=== PATIENT | female | born 1985 | race Hispanic/Latino ===

== ENCOUNTER 2022-01-15 09:26 | Emergency (ER) | payer SELFPAY ==
[2022-01-15 09:41] VITALS: BP 95/60; PULSE 56; RESP 20; TEMP 36.5; O2SAT 99
--- NOTE | 2022-01-15 09:55 | ED.FEMALEGU ---
HPI - Female Genitourinary General Chief complaint: Urogenital-Female Stated complaint: burning and frequent urination Time Seen by Provider: 01/15/22 09:50 Source: patient and RN notes reviewed Mode of arrival: ambulatory Limitations: no limitations History of Present Illness HPI Narrative: 36-year-old female presented for complaint of burning with urination for 1 week. She endorses frequency, urgency, and mild nausea and dizziness. Denies abdominal pain, flank pain, hematuria, fever or chills. She has not taken anything for symptoms. She denies recurrent UTIs. Related Data Home Medications Medication Instructions Recorded Confirmed dicyclomine 10 mg capsule mg 01/15/22 levothyroxine 50 mcg tablet mcg 01/15/22 linaclotide 145 mcg capsule mcg 01/15/22 (Linzess) omeprazole 20 mg capsule,delayed mg 01/15/22 release Allergies Allergy/AdvReac Type Severity Reaction Status Date / Time No Known Allergies Allergy Verified 01/15/22 09:54 Review of Systems Review of Systems: CONSTITUTIONAL: Denies body aches, fever, chills, or sweats. CARDIOVASCULAR: Denies chest pain, palpitations, or edema. RESPIRATORY: Denies cough or dyspnea. GASTROINTESTINAL: Denies abdominal pain, nausea, vomiting, or diarrhea. GENITOURINARY: Reports dysuria, frequency, urgency, denies hematuria, flank pain SKIN: Denies rash, itching, or wounds. MUSCULOSKELETAL: Denies back pain or myalgia. PMFSH Comments At time of signature, I have reviewed and agree with nursing past medical, surgical, social and family history unless otherwise noted. Please see nursing chart for further information. There is no relevant family history pertinent to the presenting complaint Exam Narrative: GENERAL: Well-appearing and in no acute distress. ENT: Mucous membranes pink and moist. CHEST: Clear to auscultation. HEART: Regular rate and rhythm. ABDOMEN: Soft, nontender, nondistended, normal active bowel sounds. No CVA tenderness SKIN: Warm, dry, no rash. NEURO: No focal deficits. Alert and oriented x3. Gait steady. PSYCH: Normal affect. Course Course Emergency Course: Patient is aware of diagnosis, understands and agrees to treatment plan. Anticipatory guidance given. Patient agrees to follow-up as directed and is aware of reasons to seek care at the emergency department. Portions of this record may have been created with voice recognition software Level of Care: Express Care Visit Vital Signs Vital signs: Vital Signs Temperature 97.7 F 01/15/22 09:41 Pulse Rate 56 L 01/15/22 09:41 Respiratory Rate 20 01/15/22 09:41 Blood Pressure 95/60 L 01/15/22 09:41 Pulse Oximetry 99 01/15/22 09:41 Oxygen Delivery Room Air 01/15/22 09:41 Temperature 97.7 F 01/15/22 09:41 Pulse Rate 56 L 01/15/22 09:41 Respiratory Rate 20 01/15/22 09:41 Blood Pressure 95/60 L 01/15/22 09:41 Pulse Oximetry 99 01/15/22 09:41 Oxygen Delivery Room Air 01/15/22 09:41 Reviewed MDM - Female Genitourinary MDM Narrative Medical decision making narrative: UA reviewed with pt. Rx sent. patient is non-toxic appearing and is in no distress. Appropriate for treatment of UTI as outpt. Differential Diagnosis Differential diagnosis: Likely urinary tract infection and cystitis Lab Data Labs: Urine Glucose Negative Reference Range: Negative Urine Bilirubin Negative Reference Range: Negative Urine Ketone Negative Reference Range: Negative Urine Specific [place] 1.025 Reference Range:1.001-1.035 Urine Blood 2+ Reference Range: Negative * * Urine pH
== END 2022-01-15 10:10 | disposition home or self-care (01) ==
PROVIDERS: Emergency Provider Nurse Practitioner Family; PCP Registered Nurse
DX: N39.0 Urinary tract infection, site not specified (principal); K21.9 Gastro-esophageal reflux disease without esophagitis; E03.9 Hypothyroidism, unspecified
CPT/HCPCS: 81003; 87077; 87086; 87186; 99203; G0463

== ENCOUNTER 2023-06-10 12:14 | Emergency (ER) | payer SELFPAY ==
[2023-06-10 12:21] VITALS: BP 120/71; PULSE 73; RESP 18; TEMP 36.9; O2SAT 98
--- NOTE | 2023-06-10 12:41 | ED.GENADULT ---
HPI - General Adult General Chief complaint: Upper Respiratory Infection Stated complaint: cough/headache Source: patient, RN notes reviewed and old records reviewed Mode of arrival: ambulatory Limitations: no limitations History of Present Illness HPI narrative: 38-year-old female presents to [facility] with complaints cough, congestion, sore throat, myalgia, fatigue this started 1 week ago. Patient taking [id number] medications with no relief. Patient denies dizziness, weakness, chest pain, shortness of breath. Related Data Home Medications Medication Instructions Recorded Confirmed levothyroxine 50 mcg tablet mcg 01/15/22 linaclotide 145 mcg capsule mcg 01/15/22 (Linzess) omeprazole 20 mg capsule,delayed mg 01/15/22 release aluminum chloride 20 % topical topical 06/10/23 solution (Drysol Dab-O-Matic) ibuprofen 400 mg tablet mg 06/10/23 Allergies Allergy/AdvReac Type Severity Reaction Status Date / Time No Known Allergies Allergy Verified 06/10/23 12:20 Review of Systems Constitutional: Constitutional: Reports no additional constitutional complaints, Reports body ache(s), Denies chills, Reports fatigue, Denies fever(s) and Denies headache(s) Eyes: Eyes: Reports no additional eye complaints and Denies blurry vision ENT: Reports system reviewed and no additional complaints, except as documented, Denies vertigo, Denies dizziness, Denies ear discharge, Denies otalgia, Denies facial pain, Denies headache(s), Reports nasal congestion, Denies nasal discharge, Reports sinus pain, Reports sinus pressure and Reports sore throat Cardiovascular: Cardiovascular: Reports no additional cardiovascular complaints, Denies chest pain, Denies chest pain at rest, Denies rapid heart rate and Denies dyspnea Respiratory: Respiratory: Reports no additional respiratory complaints, Denies chest congestion, Reports cough, Denies pain on inspiration, Denies pain with cough and Denies dyspnea Gastrointestinal: Gastrointestinal: Denies abdominal pain, Denies diarrhea, Denies nausea and Denies vomiting Integumentary/Breasts: Skin/Breast: Denies rash Neurologic: Reports system reviewed and no additional complaints, except as documented, Denies vertigo, Denies dizziness and Denies headache(s) Endocrine: Endocrine: Denies fatigue PMFSH Comments At the time of my signature, I reviewed and agree with the nursing past medical, surgical, social, and family history. There is no relevant family history pertinent to the patient complaint. Exam Const: General: cooperative, healthy appearing, no acute distress and well nourished Nutritional Appearance: well nourished Orientation/consciousness: patient oriented x3 Limitations: no limitations HENMT: Head: normal to inspection and normocephalic Ears: external ears normal, TM's normal bilaterally, mastoids normal and Abnormal EAC present Face/Nose/Sinus: normal facial exam Face and sinus: normal facial exam Mouth: Yes Normal oral and palatal mucosa present, Yes oropharynx normal and Yes moist mucous membranes Throat: tonsils normal, uvula midline, posterior oropharynx abnormal erythema and no uvular edema Eyes: General: appearance normal, both eyes and all related structures Sclera: sclerae normal Pupils: Equal, round and reactive pupils present Resp: Effort & Inspection: normal respiratory effort, able to speak in complete sentences, no audible wheezes, no cough, no respiratory distress and no retractions Auscultation: clear to auscultation bilaterally, no crackles, no rales, no rhonchi and no wheezes Cardio: Rate: regular rate Rhythm: regular rhythm Skin: General skin exam: normal color and no rashes or lesions noted Neuro: General: patient oriented x3 Cranial nerves: Yes Equal, round and reactive pupils present Psych: Appearance: grossly normal Mental Status: mental status grossly normal Speech and movement: Normal speech and movement present Affect: normal affect
== END 2023-06-10 13:03 | disposition home or self-care (01) ==
PROVIDERS: Emergency Provider Registered Nurse
DX: J06.9 Acute upper respiratory infection, unspecified (principal); Z79.1 Long term (current) use of non-steroidal anti-inflammatories (NSAID); Z20.822 Contact with and (suspected) exposure to COVID-19
CPT/HCPCS: 87081; 87426; 87804; 87880; 99213; G0463

== ENCOUNTER 2023-11-10 11:04 | Emergency (ER) | payer SELFPAY ==
[2023-11-10 11:16] VITALS: BP 99/67; PULSE 62; RESP 18; TEMP 36.7; O2SAT 100
--- NOTE | 2023-11-10 11:23 | ED.GENADULT ---
HPI - General Adult General Chief complaint: Urogenital-Female Stated complaint: Poss UTI Time Seen by Provider: 11/10/23 11:21 Source: patient, RN notes reviewed and old records reviewed Mode of arrival: ambulatory Limitations: no limitations History of Present Illness HPI narrative: 38-year-old female to Express Care for complaint of nausea, urinary frequency, urinary urgency and burning with urination for 1 week. Patient endorses mild lower abdominal discomfort with urination. Patient reports having a UTI approximately 1 year ago. Patient denies fever, vomiting, bowel changes. Patient in no acute distress in exam room. Related Data Home Medications Medication Instructions Recorded Confirmed levothyroxine 50 mcg tablet 50 mcg PO DAILY 01/15/22 11/10/23 linaclotide 145 mcg capsule 145 mcg PO DAILY 01/15/22 11/10/23 (Linzess) ibuprofen 400 mg tablet See Rx Instructions .Route .COMPLEX 06/10/23 11/10/23 Allergies Allergy/AdvReac Type Severity Reaction Status Date / Time No Known Allergies Allergy Verified 11/10/23 11:28 Review of Systems Review of Systems: All systems reviewed & are unremarkable except as noted in HPI and below Constitutional: Constitutional: Reports as per HPI, Denies body ache(s), Denies chills and Denies fever(s) Eyes: Eyes: Reports no additional eye complaints ENT: Reports system reviewed and no additional complaints, except as documented Cardiovascular: Cardiovascular: Reports no additional cardiovascular complaints, Denies chest pain and Denies dyspnea Respiratory: Respiratory: Reports no additional respiratory complaints, Denies cough and Denies dyspnea Genitourinary: Genitourinary: Reports as per HPI, Reports urinary frequency, Reports nocturia, Reports dysuria and Reports urinary urgency Musculoskeletal: Musculoskeletal: Reports no additional musculoskeletal complaints Neurologic: Reports system reviewed and no additional complaints, except as documented Psychiatric: Psychiatric: Reports no additional psychiatric complaints PMFSH Comments At the time of my signature, I reviewed and agree with the nursing past medical, surgical, social, and family history. There is no relevant family history pertinent to the patient complaint. Exam Const: General: cooperative, healthy appearing, comfortable, no acute distress, alert and well nourished Nutritional Appearance: well nourished Orientation/consciousness: patient oriented x3 Limitations: no limitations HENMT: Head: normal to inspection Ears: external ears normal Face/Nose/Sinus: Normal external nose present, Normal nares present, normal facial exam, No erythema and No edema Face and sinus: normal facial exam, no erythema and no edema Mouth: Yes Normal oral and palatal mucosa present Eyes: General: appearance normal, both eyes and all related structures Neck: Neck: normal visual inspection, full ROM and no meningeal signs Lymphatic: no lymphadenopathy noted and no lymphedema noted Chest: Chest palpation & inspection: normal inspection of the chest Resp: Effort & Inspection: normal respiratory effort and able to speak in complete sentences Auscultation: clear to auscultation bilaterally Cardio: Jugular venous distension: no JVD Rate: regular rate Rhythm: regular rhythm : General: Yes no CVA tenderness Back/Spine/Pelvis: Cervical Spine: cervical ROM normal Skin: General skin exam: normal color, no rashes or lesions noted and turgor normal Neuro: General: patient oriented x3, gait normal, moves all extremities and no meningeal signs Speech: normal speech Gait exam (Neuro): Normal gait present Extrem: General: normal to inspection, full ROM and capillary refill normal Psych: Appearance: grossly normal and well kempt Course Course Emergency Course: Some parts of this dictation were generated by voice recognition software and may contain typographical and/or grammatical inaccuracies. Level of Care: Carson Plunkett
== END 2023-11-10 11:50 | disposition home or self-care (01) ==
PROVIDERS: Emergency Provider Nurse Practitioner Family
DX: N39.0 Urinary tract infection, site not specified (principal); K21.9 Gastro-esophageal reflux disease without esophagitis; E03.9 Hypothyroidism, unspecified
CPT/HCPCS: 81003; 87086; 87088; 99213; G0463

== ENCOUNTER 2024-01-19 09:08 | Emergency (ER) | payer SELFPAY ==
--- NOTE | 2024-01-19 09:16 | ED.SKABFB ---
HPI - Skin/Abscess/Foreign Bdy General Chief complaint: Skin/Abscess/Foreign Body Stated complaint: RASH ON ARMS & LEGS Source: patient and RN notes reviewed Mode of arrival: ambulatory Limitations: no limitations History of Present Illness HPI narrative: Patient is a 39-year-old female who presents to the [facility] with complaints of rash. Patient has a localized rash to bilateral arms and legs. She states that she noticed the rash on Thursday and has continued to get worse. The rash initially started on bilateral hands and spread up her arms and is now on her bilateral lower extremities. She states that she has tried hydrocortisone cream, Claritin, Chantell without any improvement. States that the rash will itch at times. She denies recent illness or fever. Denies any known skin exposure. Denies new lotions, soaps, detergents. Related Data Home Medications Medication Instructions Recorded Confirmed levothyroxine 50 mcg tablet 50 mcg PO DAILY 01/15/22 01/19/24 linaclotide 145 mcg capsule 145 mcg PO DAILY 01/15/22 01/19/24 (Linzess) simethicone 125 mg chewable tablet 125 mg PO DIRECTED 01/19/24 01/19/24 (Gas Relief Extra Strength) Allergies Allergy/AdvReac Type Severity Reaction Status Date / Time No Known Allergies Allergy Verified 01/19/24 09:22 Review of Systems Review of Systems: CONSTITUTIONAL: Denies fever, chills, or sweats. EYES: Denies visual changes, redness, or discharge. ENT: Denies otalgia and sore throat CARDIOVASCULAR: Denies chest pain, palpitations, or edema. RESPIRATORY: Denies cough or dyspnea. GASTROINTESTINAL: Denies abdominal pain, nausea, vomiting, or diarrhea. GENITOURINARY: Denies dysuria or hematuria. SKIN: Reports rash and itching. MUSCULOSKELETAL: Denies back pain, joint pain, or myalgia. NEUROLOGIC: Denies headache, numbness, or weakness. Pertinent positives per HPI. PMFSH Comments At the time of my signature, I reviewed and agree with the nursing past medical, surgical, social, and family history. There is no relevant family history pertinent to the patient complaint. Exam Narrative: GENERAL: This is a well-nourished, well-developed patient, in no apparent distress. HEAD: normocephalic, atraumatic. EYES: Sclera clear/white. Vision is grossly intact. EARS: External ears normal. Hearing grossly intact. NOSE: External nose normal with no obvious nasal discharge, nares without redness, no rhinorrhea. THROAT: Mucous membranes moist, posterior pharynx clear. NECK: Neck supple, non-tender without lymphadenopathy, masses or thyromegaly. CARDIOVASCULAR: Regular rate and rhythm without murmurs, gallops, or rubs. RESPIRATORY: Clear to auscultation. Breath sounds equal bilaterally. No wheezes, rales, or rhonchi. GASTROINTESTINAL: Abdomen soft, non-tender, nondistended. Bowel sounds are active. No hepato-splenomegaly, or palpable masses. No guarding. SKIN: warm, intact. good texture and turgor. Rash noted to bilateral upper and lower extremities. Reddened spots noted to bilateral arms and legs. Reddened areas with white centers to bilateral hands. NEURO: awake, alert, and oriented to person, place and time. There were no obvious focal neurologic abnormalities. EXTREMITIES: No clubbing, cyanosis, or edema. No joint tenderness, effusion, or edema noted. Course Course Level of Care: Express Care Visit Vital Signs Vital signs: Vital Signs Temperature 97.2 F L 01/19/24 09:20 Pulse Rate 59 L 01/19/24 09:20 Respiratory Rate 16 01/19/24 09:20 Blood Pressure 114/68 01/19/24 09:20 Pulse Oximetry 99 01/19/24 09:20 Temperature 97.2 F L 01/19/24 09:20 Pulse Rate 59 L 01/19/24 09:20 Respiratory Rate 16 01/19/24 09:20 Blood Pressure 114/68 01/19/24 09:20 Pulse Oximetry 99 01/19/24 09:20 Reviewed MDM - Skin/Abscess/Foreign Bdy MDM Narrative Medical decision making narrative: Wash the area with soap and cool water only. Avoid scratching w
[2024-01-19 09:20] VITALS: BP 114/68; PULSE 59; RESP 16; TEMP 36.2; O2SAT 99
== END 2024-01-19 09:47 | disposition home or self-care (01) ==
PROVIDERS: Emergency Provider Nurse Practitioner; PCP Registered Nurse
DX: R21 Rash and other nonspecific skin eruption (principal); K21.9 Gastro-esophageal reflux disease without esophagitis; E03.9 Hypothyroidism, unspecified
CPT/HCPCS: 99213; G0463

== ENCOUNTER 2024-01-21 10:00 | Emergency (ER) | payer SELFPAY ==
[2024-01-21 10:09] VITALS: BP 127/76; PULSE 76; RESP 18; TEMP 36.6; O2SAT 98
--- NOTE | 2024-01-21 11:23 | ED.SKABFB ---
HPI - Skin/Abscess/Foreign Bdy General Chief complaint: Skin/Abscess/Foreign Body Stated complaint: rash Time Seen by Provider: 01/21/24 10:59 Source: patient Mode of arrival: ambulatory Limitations: no limitations History of Present Illness HPI narrative: Patient is a 39-year-old female who presents the ED with report of a rash. Patient reports having a red circular itchy rash to her arms, thighs since Thursday. States the rash seems to have progressed and the lesions have began to morphine together. She was seen at an urgent care and prescribed prednisone, but denied improvement. She has been taking Benadryl for the itching. She has also noticed a few lesions on her palms and right heel. She states her lips feel tingly, but denies lesions in her mouth, swelling of lips/tongue, difficulty breathing/swallowing, fevers. denies family members with similar symptoms. Denies any new medications, soaps, lotions, detergents. Denies outdoor exposure/tick bites. Related Data Home Medications Medication Instructions Recorded Confirmed levothyroxine 50 mcg tablet 50 mcg PO DAILY 01/15/22 01/19/24 linaclotide 145 mcg capsule 145 mcg PO DAILY 01/15/22 01/19/24 (Linzess) simethicone 125 mg chewable tablet 125 mg PO DIRECTED 01/19/24 01/19/24 (Gas Relief Extra Strength) Allergies Allergy/AdvReac Type Severity Reaction Status Date / Time No Known Allergies Allergy Verified 01/19/24 09:22 Review of Systems Review of Systems: All systems reviewed & are unremarkable except as noted in HPI. All systems reviewed & are unremarkable except as noted in HPI and below Exam Narrative: GENERAL: Well appearing, well-nourished, non-toxic, in no acute distress. HEAD: Normocephalic, atraumatic. ENT: No oral mucosal lesions. No swelling/erythema of lips/tongue. No stridor or distress. Maintaining secretions. RESPIRATORY: Airway patent, respirations nonlabored. CARDIOVASCULAR: Regular rate and rhythm MUSCULOSKELETAL: Moves all extremities. No gross deformities. SKIN: Warm, dry, normal color. Erythematous, circular/somewhat bulls-eye rash to bilateral dorsal hands, extending up to forearms. Few scattered lesions to anterior thighs. Faint lesions to bilateral palms. NEURO: A&O X3. Speech clear. PSYCHIATRIC: Appropriate mood and affect. Normal interaction. Course Vital Signs Vital signs: Vital Signs Temperature 97.8 F 01/21/24 10:09 Pulse Rate 76 01/21/24 10:09 Respiratory Rate 18 01/21/24 10:09 Blood Pressure 127/76 01/21/24 10:09 Pulse Oximetry 98 01/21/24 10:09 Oxygen Delivery Room Air 01/21/24 10:09 Temperature 98.7 F 01/21/24 12:32 Pulse Rate 75 01/21/24 12:32 Respiratory Rate 18 01/21/24 12:32 Blood Pressure 137/72 01/21/24 12:32 Pulse Oximetry 98 01/21/24 12:32 Oxygen Delivery Room Air 01/21/24 10:09 MDM - Skin/Abscess/Foreign Bdy MDM Narrative Medical decision making narrative: Patient presented to ED with several day history of pruritic, erythematous, circular, bullseye type rash to arms and thighs. VSS. no signs of anaphylaxis or airway compromise. Rash appears most consistent with erythema multiforme. Does not appear consistent with urticaria, cellulitis, [place] spotted fever, syphilis, HFM, measles, petechiae, eczema, psoriasis, shingles. Could be tinea lesions, though less scaly. No other family members w/ sx's. No vesicles/blisters. No sloughing of skin. Skin integrity is intact. Does not appear consistent with SJS/TEN. No outdoor exposure/known tick bites. No systemic signs of infection/allergic rxn. Discussed diagnosis likelihood with patient and family. Advised that EM is self-limiting, should resolve on its own within the next few weeks. Discussed management of pruritus. Will prescribe steroid ointment. advised patient to have close follow-up with her primary care doctor and Dermatology for further evaluation. She was given strict retur
[2024-01-21 12:32] VITALS: BP 137/72; PULSE 75; RESP 18; TEMP 37.1; O2SAT 98
== END 2024-01-21 12:38 | disposition home or self-care (01) ==
LOC: ANHED 11:32
PROVIDERS: Emergency Provider Physician Assistant; PCP Registered Nurse
DX: L51.9 Erythema multiforme, unspecified (principal); K58.9 Irritable bowel syndrome, unspecified; E03.9 Hypothyroidism, unspecified; Z79.899 Other long term (current) drug therapy
CPT/HCPCS: 99283

== ENCOUNTER 2024-01-25 11:23 | Emergency (ER) | payer SELFPAY ==
[2024-01-25] VITALS (7 sets, daily range): BP systolic 112–144; BP diastolic 68–79; PULSE 53–77; RESP 12–100; TEMP 36.5–36.7; O2SAT 18–100
--- NOTE | ~2024-01-25 | XR_ITS ---
Clinical Indication: Chest pain PA and lateral views of the chest: Comparison: None Findings: The lungs are clear, without evidence of focal consolidation or pleural effusion. Cardiome diastinal silhouette is within normal limits. Bones and soft tissues are unremarkable. Impression: Normal chest. Reviewed, dictated and finalized at location . Impression: Normal chest.
--- NOTE | 2024-01-25 11:25 | ECG_ITS ---
Test Date: 2024-01-25 11:36:47 Measurements Intervals [place] Rate: 60 P: 53 ND: 145 QRS: 1 QRSD: 114 T: 36 QT: 429 QTc: 430 Interpretive Statements SINUS RHYTHM NORMAL ELECTROCARDIOGRAM No previous ECG available for comparison Electronically Signed On 01-26-2024 07:23:13 CDT by Kade Diaz M.D.
[2024-01-25 11:47] LABS: Basophils Percent Auto 0.4 % (0.2-1.2); Eosinophils Absolute Auto 0.1 K/mm3 (0-0.3); Eosinophils Percent Auto 0.7 % (0-4.4); Hemoglobin 14.5 g/dL (12.0-15.0); Immature Granulocyte Absolute 0.01 K/mm3 (0.00-0.031); Immature Granulocyte Percent A 0.1 % (0-0.5); Lymphocytes Absolute Auto 1.78 K/mm3 (0.9-3.2); Lymphocytes Percent Auto 24.8 % (18.3-44.2); Mean Corpuscular HGB Conc 34.5 g/dl (32-36); Mean Corpuscular Hemoglobin 30.4 pg (26-34); Mean Corpuscular Volume 88.1 fl (80-100); Mean Platelet Volume 10.8 fl (7.4-10.4); Monocytes Absolute Auto 0.4 K/mm3 (0.1-0.6); Monocytes Percent Auto 5.3 % (2.6-8.5); Neutrophils Absolute Auto 4.9 K/mm3 (1.3-6.7); Neutrophils Percent Auto 68.7 % (45.5-73.1); Platelet Count Result 209 k/mm3 (150-375); Red Blood Count 4.77 M/mm3 (4.2-5.4); Red Cell Distribution Width 12.2 % (11.5-14.5); White Blood Count 7.2 K/mm3 (4.5-10.0)
[2024-01-25 11:58] LABS: Alanine Aminotransferase 37 U/L (6-35); Albumin Level 4.4 g/dL (3.5-5.1); Alkaline Phosphatase 48 U/L (38-126); Anion Gap 10 mmol/L (4-12); Aspartate Amino Transferase 28 U/L (14-36); Bilirubin,Total 0.6 mg/dL (0.2-1.3); Blood Urea Nitrogen 12 mg/dL (7-17); Calcium 9.1 mg/dL (8.4-10.2); Carbon Dioxide 26 mmol/L (22-30); Chloride 100 mmol/L (98-107); Estimated Glomerular Filt Rate > 60; Glucose 94 mg/dL (65-110); Lipase 73 U/L (23-300); Potassium 3.8 mmol/L (3.4-5.0); Sodium 136 mmol/L (137-145)
[2024-01-25 12:00] LABS: Prothrombin Time 13.4 Seconds (11.1-14.7)
[2024-01-25 12:01] LABS: Partial Thromboplastin Time 25.2 Seconds (22.3-36.8)
[2024-01-25 12:10] LABS: Troponin I < 0.012 ng/mL (0.000-0.034)
--- NOTE | 2024-01-25 14:44 | ED.CHESTPAIN ---
HPI - Chest Pain General Chief Complaint: Chest Pain <Judi Degroot PA-C - Last Filed: 01/26/24 10:47> Stated Complaint: chest pain <Judi Degroot PA-C - Last Filed: 01/26/24 10:47> Time Seen by Provider: 01/25/24 14:44 <Judi Degroot PA-C - Last Filed: 01/26/24 10:47> Focused HPI: This is a 39 year old female that presents to the ER for chest pain. Went to ER in [place] and was evaluated. This morning worsening pain brought her back. Patient reports left sided chest pain, tingling in the left arm, nausea, headache. Denies lower extremity edema. GENERAL: Well-appearing, well-nourished, and in no acute distress. HEAD: Normocephalic, atraumatic. CHEST: Clear to auscultation. ?No respiratory distress. HEART: Regular rate and rhythm.? NEURO: ?Alert and oriented x3. Patient screened in triage and initial orders placed.? ?Additional care and disposition to be based upon?diagnostic testing and treatment. <Judi Degroot PA-C - Last Filed: 01/26/24 10:47> History of Present Illness HPI narrative: 79-year-old Czech-speaking female with a history of hypothyroidism presents to the emergency department for intermittent chest pain for 2 days. I offered to use a software validation technician, however patient politely declined and would like her at bedside to translate. Patient states 2 days ago she was driving when she began having pain to the left side of her chest that radiated down her left arm with associated left-sided headache, epigastric abdominal pain and nausea. States this lasted about an hour self-resolved. She went to [facility] and had a negative workup and was discharged home. She states today around 5:00 a.m. when she woke up to go to the bathroom she began having the same symptoms. This again self-resolved within an hour. She states around 1030 today the symptoms have returned lasted 30 minutes post seem to be more severe. She states now she has a very mild left-sided headache, mild left-sided chest discomfort and nausea. She denies current abdominal pain or shortness of breath. She states when she has the pain feels worse when she takes a deep breath. She cannot identify any aggravating or alleviating factors including exertional symptoms. She denies lower extremity edema, recent surgeries or hospitalizations, history of VTE, fever, cough or congestion, hemoptysis, vision changes, focal numbness or weakness, head injury or trauma. She denies a history of the same. Denies known personal or family cardiac history. She does not smoke. She denies any recent anxiety or stressors, however does admit that her mother 2 years ago and became tearful discussing this. Of note the patient was seen in our emergency department 4 days ago for a rash to her upper extremities. She was diagnosed with erythema multiforme And given PCP and Dermatology follow-up as well as hydrocortisone cream for pruritus. <Ailyn Yanez PA-C - Last Filed: 01/25/24 19:19> Related Data Home Medications: Home Medications Medication Instructions Recorded Confirmed levothyroxine 50 mcg tablet 50 mcg PO DAILY 01/15/22 01/19/24 linaclotide 145 mcg capsule 145 mcg PO DAILY 01/15/22 01/19/24 (Linzess) simethicone 125 mg chewable tablet 125 mg PO DIRECTED 01/19/24 01/19/24 (Gas Relief Extra Strength) <Judi Degroot PA-C - Last Filed: 01/26/24 10:47> Allergies/Adverse Reactions: Allergies Allergy/AdvReac Type Severity Reaction Status Date / Time No Known Allergies Allergy Verified 01/25/24 11:24 <Judi Degroot PA-C - Last Filed: 01/26/24 10:47> Review of Systems Review of Systems: All systems reviewed & are unremarkable except as noted in HPI and below <Ailyn Yanez PA-C - Last Filed: 01/25/24 19:19> [facility] Past Medical History Medical History: Medical History (Updated 01/26/24 @ 10:47 by Judi Degroot PA-C) History of hypothyroidism <Judi Hager
[2024-01-25 15:21] LABS: Troponin I < 0.012 ng/mL (0.000-0.034)
--- NOTE | 2024-01-25 16:59 | ECG_ITS ---
Test Date: 2024-01-25 17:34:33 Measurements Intervals [place] Rate: 52 P: 44 NV: 157 QRS: -14 QRSD: 96 T: 16 QT: 445 QTc: 414 Interpretive Statements SINUS BRADYCARDIA Compared to ECG 01/25/2024 14:47:45 NO SIGNIFICANT CHANGES Electronically Signed On 01-26-2024 15:33:34 CDT by Alayna Sol M.D.
--- NOTE | 2024-01-25 17:39 | ECG_ITS ---
Test Date: 2024-01-25 14:47:45 Measurements Intervals [place] Rate: 61 P: 54 [place]: 157 QRS: 1 QRSD: 92 T: 38 QT: 442 QTc: 447 Interpretive Statements SINUS RHYTHM Compared to ECG 01/25/2024 11:36:47 No significant changes Electronically Signed On 01-26-2024 15:27:52 CDT by Alayna Sol M.D.
[2024-01-25] MEDS: diphenhydrAMINE HCl INJ 50 MG/ML VIAL 25 MG IV PUSH (18:07)
[2024-01-25] MEDS: SODIUM CHLORIDE 0.9% IV 1,000 ML 999 ML IV CONT (18:07)
[2024-01-25] MEDS: KETOROLAC 15 MG/ML VIAL (*BKC) IV PUSH (18:08)
[2024-01-25] MEDS: PROCHLORPERAZINE EDISYLATE 10 MG/2 ML VIAL IV PUSH (18:08)
[2024-01-25 18:12] LABS: Troponin I < 0.012 ng/mL (0.000-0.034)
[2024-01-25 18:21] LABS: Influenza A QL RT-PCR Negative (Negative); Influenza B QL RT-PCR Negative (Negative); RSV RNA, RT-PCR Negative (Negative); SARS-CoV-2 RNA PCR Negative (Negative)
== END 2024-01-25 19:40 | disposition home or self-care (01) ==
PROVIDERS: Student in an Organized Health Care Education/Training Program; Emergency Provider Physician Assistant; PCP Registered Nurse
DX: M94.0 Chondrocostal junction syndrome [Tietze] (principal); R51.9 Headache, unspecified; Z20.822 Contact with and (suspected) exposure to COVID-19; E03.9 Hypothyroidism, unspecified
CPT/HCPCS: 36415; 71046; 80053; 83690; 84443; 84484; 85025; 85610; 85730; 87637; 93005; 96361; 96374; 96375; 99284; J0780; J1200; J1885; J7030

== ENCOUNTER 2024-07-06 18:27 | Emergency (ER) | payer SELFPAY ==
--- OUTSIDE RECORDS SUMMARY | 2024-07-06 18:30 | XMS_ITS | Continuity of Care Document ---
Author Organization [facility] Address [address] [place] [address] Phone Care Team Providers Care Spanish Interpreter/Translator Name Role Phone Unavailable Unavailable Unavailable Allergies, Adverse Reactions, Alerts Substance Reaction Status Criticality No Known allergies Medications Medication Instructions Dosage Effective Dates (start - stop) Status Comments Colace 100 mg Cap take 1 capsule (100MG) by oral route every day at bedtime as needed 100 MG - No Longer Active Procedures Procedure Date COLLECTION OF VENOUS BLOOD BY VENIPUNCTU SUJEY OFFICE/OUTPATIENT VISIT, [facility] Advance Directives Directive Yes / No Effective Date File Name No Information Encounters Encounter Description Practice Location Reason(s) For Visit Diagnoses Date Provider Providers Copied on Encounter [facility], [address], [place], [place], [id number] , [place] tel: [phone] [facility] No Information 0 No Information OFFICE/OUTPAT IENT VISIT, [facility], [address], [place], [place], [id number] , tel: [phone] [facility] constipation (chief complaint) Constipation , unspecified 0 No Information Family History Family Member Type Diagnosis Age At Onset No Information Payers Payer name Insurance type Covered constitution party ID Authoriza tion(s) No Information Social History Type Description Quantity Date Captured Comments Sex Female Smoking Status No Information Chief Complaint And Reason For Visit No Information Reason For Referral Reason For Referral No Information History Of Present Illness Encounter Date Complaint History Of Prese nt Illness No Information Functional Status Date Functional Assessmen t No Information Instructions Date Instruction Additional Infor mation No Information Assessments Type Assessment Date No Information Patient Care Teams Name Effective Dates (start - stop) Status Members No Information
--- OUTSIDE RECORDS SUMMARY | 2024-07-06 18:30 | XMS_ITS | Clinical Summary ---
Author Organization [facility] Address [address] [place] [address] Care Team Providers Care Stain Dipper Name Role Phone Thomas Mejía NP Primary Care Provider [phone] No, Physician Unavailable Kade Blanc MD Unavailable [phone] Medications senna (SENOKOT) 8.6 mg tablet Take 1-2 tabs twice weekly between dinner and bedtime to help with more relief from chronic constipation and abdominal pain. 60 tablet 1 3 Active levothyroxine (SYNTHROID) 75 mcg tablet 3 Active omeprazole (PriLOSEC) 20 mg capsule TAKE ONE CAPSULE BY MOUTH DAILY IN THE MORNING 3 Active linaCLOtide (LINZESS) 290 mcg capsuleIndicati ons:Constipatio n Predominant Irritable Bowel Syndrome Take 1 capsule (290 mcg total) by mouth daily 30 capsule 11 4 11/23/19 25 Active cholecalciferol 25 mcg (1,000 unit) tablet Take 1 tablet (1,000 Units total) by mouth daily Active simethicone (MYLICON) 125 mg chewable tablet Take 1 tablet (125 mg total) by mouth 4 (four) times a day as needed (cramping/bloati ng/gas/nausea) 120 tablet 3 4 Active ondansetron (ZOFRAN) 4 mg tablet Take 1 tablet (4 mg total) by mouth every 8 (eight) hours as needed for nausea or vomiting 20 tablet 4 Active topiramate (TOPAMAX) 25 mg tablet Take 1 tablet (25 mg total) by mouth 2 (two) times a day for 6 days, THEN 2 tablets (50 mg total) 2 (two) times a day. 1452 tablet 4 02/05/20 25 Active Active Problems Problem Noted Date Diagnosed Date Intractable headache, unspec ified chronicity pattern, unspecified headache type 01/27/2024 Gastroesophageal reflux disease 07/14/2023 Assessment & Plan (07/14/2023 5:24 PM RECREATION MANAGER): Symptoms are well controlled with Prilosec and Gas-X. She will continue the same. Patient was reassured about t benign nature of her symptoms. 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 The varicose vein is to the posterior medial thigh which is palpable and painful with prolonged periods of standing. Discussed results with the patient and that she could benefit from a phlebectomy. Discussed the patient with Dr. Espinoza who was also in agreement. Assessment & Plan (09/26/2022 1:58 PM CDT): Small varicose vein noted to the mid medial thigh down to the medial knee. No swelling to either lower extremity. Palpable pulses. No edema. Plan: Continue wearing compression stockings. Obtain Venous reflux and return in 2 weeks. Irritable bowel syndrome with constipation 07/17 Assessment & Plan (01/07/2024 11:03 AM CDT): Seems to be doing well with Linzess 290 mcg daily so will continue the same. Assessment & Plan (07/14/2023 5:25 PM RECREATION MANAGER): Her bowels are good with Linzess. Continue the same. May use stool softener in addition as needed. Assessment & Plan (12/18/2022 11:37 AM CDT): Doing well overall with Linzess and senna. We discussed the high-fiber diet. Hepatic hemangioma 07/17/2022 Assessment & Plan (01/07/2024 11:04 AM CDT): No changes in the size over the years. Appearance is benign by multiple imaging modalities. We will repeat MRI only if alpha-fetoprotein level increased further. Assessment & Plan (07/14/2023 5:23 PM RECREATION MANAGER): Patient has small hemangioma confirmed on MRI imaging and other types of imaging. Size is stable. I doubt this hemangioma is contributing to her pain or elevated alpha-fetoprotein level. Will refer the patient to hepatology Clinic at [facility] for 2nd opinion recommendations. Assessment & Plan (03/16/2023 5:30 PM CDT): Patient has the liver hemangioma lesions which has not changed in size over the last couple years with repeat imaging. These usually are benign and no intervention is needed. Elevated AFP 07/17/2022 Assessment & Plan (01/07/2024 11:03 AM CDT): No specific pathology or reason can be identified. She had 2nd opinion evaluation with hepatology clinic at [facility] and same conclusion. Will monitor annually. Follow up in 1 year. Assessment & Plan (07/14/2023 5:23 PM RECREATION MANAGER): Persistent elevation of alpha-fetoprotein level. No clear etiology. Level has been stable around 10. I will refer the patient to [facility] hepatology Clinic for 2nd opinion evaluation and recommendations. Assessment & Plan (03/16/2023 5:30 PM CDT): This has noted on several occasions at the low level elevation. Extensive imaging of the liver did not show any liver lesion. No sign of liver cancer. Previous EGD unremarkable. Previous imaging of CT did not show adnexal masses. Will continue to monitor and check every 3-6 months. Assessment & Plan (12/18/2022 11:38 AM CDT): She had mild elevation of alpha-fetoprotein level in the past. Previous imaging showed the 2 small hemangioma lesions. Will repeat alpha-fetoprotein level today as well as Ca and the CA 19 9. Chronic nausea 07/17/2022 RUQ pain 07/17/2022 Assessment & Plan (01/07/2024 11:03 AM CDT): Post cholecystectomy for 15 years. The pain is much better at this time is only intermittent. Not affecting her daily living activity and her weight has been stable. I think this pain is functional or neuropathic. Assessment & Plan (07/14/2023 5:22 PM RECREATION MANAGER): Patient has chronic right upper quadrant abdominal pain with no improvement on no objective findings. I suspect neuropathic functional pain. Assessment & Plan (03/16/2023 5:26 PM CDT): Patient has chronic abdominal pain. No specific pathology noted from GI point. She noticed some help with ibuprofen. With that in mind will try Motrin 400 mg 2 or 3 times daily with meals for the next couple weeks. Assessment & Plan (12/18/2022 11:37 AM CDT): Patient continues with the same pain. Will try gabapentin [address] of the abdomen pelvis to complete evaluation. Follow-up after the CT scan in 2 or 3 months. Carpal tunnel syndrome on right 01/07/2022 Overview (01/07/2022): Added automatically from request for surgery [id number] Resolved Problems Problem Noted Date Diagnosed Date Resolved Date Functional abdominal pain syndrome 07/17/2022 09/11/2022 Elevated ALT measurement 07/17/2022 Abdominal pain 03/10/2022 09/11/2022 Overview (03/10/2022): Added automatically from request for surgery [id number] Vomiting 03/10/2022 09/11/2022 Overview (03/10/2022): Added automatically from request for surgery [id number] Immunizations Name Administration Dates Next Due Influenza, Quadrivalent, Spl it, Intramuscular 05/01/2020,03/23/2018,02/13/2017,07/01 Influenza, Quadrivalent, Spl it, Preservative Free, Intramuscular 04/29/2021 Pfizer SARS-CoV-2 Monovalent Vaccination (12+ Yrs) PURPLE 04/01/2021,09/17/2020,08/28/2020 Tdap 12/13/2014 Surgical History Surgery Date Site/Laterality Comments CHOLECYSTECTOMY BREAST SURGERY AUGMENTATION MAMMAPLASTY 06/01/2019 - 05/31/2020 Bilater al Medical History Medical History Date Comments Thyroid disease Family History Medical History Relation Name Comments Breast cancer Neg Hx Social History Tobacco Use Types Packs/Day Years Used Date Smoking Tobacco: Never Smokeless Tobacco: Never Tobacco Cessation:Counseling Given: Not Answered [facility] Utilities Answer Date Recorded In the past 12 months has hike, gas, oil, or water [employer] threatened to shut off services in your home? No 01/28/2024 Social Connection and Isolat ion Panel [NHANES] Answer Date Recorded In a typical week, how many times do you talk on the phone with family, friends, or neighbors? Three times a week 01/28/2024 How often do you get togethe r with friends or relatives? Three times a week 01/28/2024 How often do you attend chur or taoism services? More than 4 times per year 01/28/2024 Do you belong to any clubs o r organizations such as zoroastrian groups, unions, fraternal or athletic groups, or school groups? No 01/28/2024 How often do you attend meet ings of the clubs or organizations you belong to? Never 01/28/2024 Are you , , di vorced, , never , or living with a partner? 01/28/2024 AUDIT-C Answer Date Recorded Q1: How often do you have a drink containing alc ohol? 2-4 times a month 01/27/2024 Q2: How many drinks containi ng alcohol do you have on a typical day when you are drinking? 3 or 4 01/27/2024 Q3: How often do you have si x or more drinks on one occasion? Less than monthly 01/27/2024 Overall Financial Resource Strain (CARDIA) Answe r Date Recorded How hard is it for you to pa y for the very basics like food, housing, medical care, and heating? Not hard at all 01/28/2024 Hunger Vital Sign Answer Date Recorded Within the past 12 months, y ou worried that your food would run out before you got the money to buy more. Never true 01/28/20 24 Within the past 12 months, t he food you bought just didn't last and you didn't have money to get more. Never true 01/28/2024 PRAPARE - Transportation Answer Date Re corded In the past 12 months, has l ack of transportation kept you from medical appointments or from getting medications? No 12/31 In the past 12 months, has l ack of transportation kept you from meetings, work, or from getting things needed for daily living? No 01/28/2024 Housing Stability Vital Sign Answer Zachery e Recorded In the last 12 months, was t here a time when you were not able to pay the mortgage or rent on time? No 01/28/2024 In the past 12 months, how m any times have you moved where you were living? 0 01/28/2024 At any time in the past 12 m [facility], were you homeless or living in a group home (including now)? No 01/28/2024 Personal Safety Answer Date Recorded Have you ever been in or are you currently in a harmful physical or emotional relationship or is someone making you feel afraid or unsafe? Denies 01/26/2024 Comments No Sex and Gender Information Value Date Recorded Sex Assigned at Not on file Legal Sex Female 8:53 AM RECREATION MANAGER Gender Identity Not on file Sexual Orientation Not on file Obstetrics History Para Term AB IAB SAB Ectopic Multiple Livin g Live Births 0 0 0 0 0 0 0 0 0 0 0 Last Filed Vital Signs Vital Sign Reading Time Taken Comments Blood Pressure 125/76 01/30/2024 7:48 AM CDT Pulse 55 01/30/2024 7:48 AM CDT Temperature 36.6 C (97.8 F) 01/30/2024 7:48 AM CDT Respiratory Rate 17 01/30/2024 7:48 AM CDT Oxygen Saturation 99% 01/30/2024 7:48 AM CDT Inhaled Oxygen Concentration - - Weight 58 kg (127 lb 13.9 oz) 01/27/2024 7:56 AM CDT Height 144.8 cm (4' 9.01 ) 01/27/2024 7:56 AM CD T Body Mass Index 27.66 01/27/2024 7:56 AM CDT Plan of Treatment Health Maintenance Due Date Last Done Comments Cervical Cancer Screening 1983 Depression Screening 1983 Varicella Vaccines (1 of 2 - 13+ 2-dose series) 01/18/1996 Regular Well Visit/Exam 18-64 2001 Covid-19 Vaccine ( season) 2024 04/01/2021, 09/17/2020, 08/28/2020 Influenza Vaccine (#1) 2024 , 04/29/2021, 05/01/2020, Additional history exists Breast Cancer Screening-Mammogram 09/20/2024 09/21/2023 DTaP/Tdap/Td Vaccine (2 - Td or Tdap) 12/13/2024 12/13/2014 Hepatitis B Screening Completed 02/20/2022 Hepatitis C Screening Completed 02/20/2022 HPV Vaccines Aged Out No longer eligi ble based on patient's age to complete this topic Pneumococcal vaccine <65 Aged Out No longer eligible based on patient's age to complete this topic Procedures Procedure Name Priority Date/Time Associated Diagnosis Comments SCREENING MAMMOGRAM BILATERAL W CRISTIAN W IMPLANTS Schedule Routine, Read Routine (OP Routine) 09/21/2023 8:56 AM CDT Encounter for screening mammogram for malignant neoplasm of breast HEPATITIS PANEL, ACUTE Routine 02/20/2022 3:04 PM CDT RUQ pain Nausea and vomiting, unspecified vomiting type Dyspepsia History of cholecystectomy Abnormal liver diagnostic imaging Neoplasm of uncertain behavior of liver from Last 3 Months or Most Recently Relevant to Health Maintenance Results * Screening Mammogram Bilateral W Cristian W Implants (09/21/2023 8:56 AM CDT) Anatomical Region Laterality Modality Breast Bilateral Mammography 09/21/2023 10:1 6 AM CDT Impressions 09/21/2023 10:16 AM CDT There is no mammographic evidence of malignancy. A 1 year screening mammogram is recommended. BI-RADS: 1 - Negative. The patient has been or will be contacted. The patient will be entered into a reminder system with a target due date of 1 year for her next mammogram. Electronically signed by: Emily Roldan M.D. Narrative 09/21/2023 10:16 AM CDT EXAMINATION: SCREENING MAMMOGRAM BILATERAL W CRISTIAN W IMPLANTS ORDERING HEALTHCARE PROVIDER: EMMANUEL PEÑA HISTORY: Routine screening mammography. COMPARISON: Baseline study TECHNIQUE: CC and MLO views of the bilateral breasts were obtained implant in view and implant displaced views with digital technique using breast tomosynthesis with C view. Computer aided detection was utilized. FINDINGS: DENSITY: There are scattered fibroglandular elements in the bilateral breasts. BREASTS: There are bilateral subpectoral silicone implants. There are no suspicious masses, suspicious calcifications, or other suspicious findings in either breast. Emmanuel Peña SAFETY AND HEALTH CONSULTANT IMG MAMMO PROCEDURES Final Re sult * Hepatitis panel, acute (02/20/2022 3:04 PM CDT) Hep A IgM Nonreactive Nonreactive REJI FELIX (TAMIA) Comment: Interpretive Data: If Hep A IgM Ab is reported as Equivocal, a new sample should be drawn in two weeks for testing. Current interpretive data was last revised on 19. Testing performed by: [facility], [address] [place] [address], [place]., [address] Hep B core IgM Nonreactive Nonreactive C RUELER ISIDRO (TAMIA) Comment: Interpretive Data If HepB Core IgM Ab is reported as Equivocal, a new sample should be drawn in two weeks for testing. Current interpretive data was last revised on 19. Testing performed by: [facility], [address] [place] [address], [place]., [address] Hep C Ab Nonreactive Nonreactive REJI FELIX (TAMIA) Comment: Interpretive Data Nonreactive: Antibodies to HCV not detected. Does NOT exclude the possibility of recent exposure to HCV. Equivocal: Equivocal for HCV antibodies. Supplemental molecular testing will be automatically performed to determine infection status in accordance with current CDC screening recommendations. Reactive: Positive for HCV antibodies. This may represent current or past HCV infection. Supplemental molecular testing will be automatically performed to determine current infection status in accordance with current CDC screening recommendations. Interpretive data was last revised on 2019. Testing performed by: [facility], [address] [place] [address]., [id number] HepBsAg Nonreactive Nonreactive REJI FELIX (TAMIA) Comment:Testing performed by : [facility], [address] [place] [address]., [id number] Blood 02/20/2022 3:04 PM CDT 02/20/2022 6:36 PM CDT Oscar Blanco NP LAB MICROBIOLOGY - GENERAL ORDERABLES Final Result REJI FELIX (TAMIA) 1 [facility] [place] [address] from Last 3 Months or Most Recently Relevant to Health Maintenance Advance Directives For more information, please contact: [phone] * Full Code (Latest Code Status on File) Date Activated Date Inactivated Comments 01/27/2024 3:50 PM 01/30/2024 3:58 PM * Full Code Date Activated Date Inactivated Comments 03/11/2022 10:22 AM 03/11/2022 5:42 PM Care Teams Stain Dipper Relationship Specialty Start Date End Date Thomas Mejía NP [facility] [place] [address] PCP - General Nurse Practitioner 12/16/21 No, Physician 12/16/21 Kade Blanc MD [address] [place] [address] [place] [address] Consulting Physician Neurology 01/30/24
--- OUTSIDE RECORDS SUMMARY | 2024-07-06 18:30 | XMS_ITS | Referral Summary ---
Author Organization [facility] Address [address] [place] [address] Care Team Providers Care Arnp Name Role Phone Thomas Mejía NP Primary Care Provider [phone] No, Physician Unavailable Kade Blanc MD Unavailable [phone] Medications senna (SENOKOT) 8.6 mg tablet Take [...] 07/14/2023 Assessment & Plan (07/14/2023 5:24 PM SEMAPHORE OPERATOR): Symptoms are well controlled with Prilosec and [...] same. Assessment & Plan (07/14/2023 5:25 PM SEMAPHORE OPERATOR): Her bowels are good with Linzess. Continue [...] further. Assessment & Plan (07/14/2023 5:23 PM SEMAPHORE OPERATOR): Patient has small hemangioma confirmed on MRI imaging and other types of imaging. Size is stable. I doubt this hemangioma is contributing to her pain or elevated alpha-fetoprotein level. Will refer the patient to hepatology Clinic at [facility] for 2nd opinion recommendations. Assessment & Plan [...] 2nd opinion evaluation with hepatology clinic at [facility] and same conclusion. Will monitor annually. Follow up in 1 year. Assessment & Plan (07/14/2023 5:23 PM SEMAPHORE OPERATOR): Persistent elevation of alpha-fetoprotein level. No clear etiology. Level has been stable around 10. I will refer the patient to [facility] hepatology Clinic for 2nd opinion evaluation and [...] neuropathic. Assessment & Plan (07/14/2023 5:22 PM SEMAPHORE OPERATOR): Patient has chronic right upper quadrant abdominal [...] (01/07/2022): Added automatically from request for surgery [id number] Resolved Problems Problem Noted Date Diagnosed Date Resolved Date Functional abdominal pain syndrome 07/17/2022 09/11/2022 Elevated ALT measurement 07/17/2022 Abdominal pain 03/10/2022 09/11/2022 Overview (03/10/2022): Added automatically from request for surgery [id number] Vomiting 03/10/2022 09/11/2022 Overview (03/10/2022): Added automatically from request for surgery [id number] Immunizations Name Administration Dates Next Due Influenza, Quadrivalent, Spl it, Intramuscular 05/01/2020,03/23/2018,02/13/2017,07/01 Influenza, Quadrivalent, Spl it, Preservative Free, Intramuscular 04/29/2021 Pfizer SARS-CoV-2 Monovalent Vaccination (12+ Yrs) PURPLE 04/01/2021,09/17/2020,08/28/2020 Tdap 12/13/2014 Social History Tobacco Use Types Packs/Day Years Used Date Smoking Tobacco: Never Smokeless Tobacco: Never Tobacco Cessation:Counseling Given: Not Answered [facility] Utilities Answer Date Recorded In the past 12 months has [employer], gas, oil, or water [employer] threatened to shut off services in your [...] 01/28/2024 How often do you attend chur ch or gnosticist services? More than 4 times per year 01/28/2024 Do you belong to any clubs o r organizations such as moravian groups, unions, fraternal or athletic groups, or [...] any time in the past 12 m [facility], were you homeless or living in a longterm (including now)? No 01/28/2024 Personal Safety Answer Date Recorded Have you ever been in or are you currently in a harmful physical or emotional relationship or is someone making you feel afraid or unsafe? Denies 01/26/2024 Comments No Sex and Gender Information Value Date Recorded Sex Assigned at Not on file Legal Sex Female 8:53 AM SEMAPHORE OPERATOR Gender Identity Not on file Sexual Orientation Not on file Last Filed Vital Signs Vital Sign Reading [...] 01/27/2024 7:56 AM CDT Plan of Treatment Not on file Procedures Procedure Name Priority Date/Time Associated Diagnosis [...] or other suspicious findings in either breast. us Emmanuel Peña SALES AND LEASING AGENT IMG MAMMO PROCEDURES Final Re sult * Hepatitis panel, acute (02/20/2022 3:04 PM CDT) Hep A IgM Nonreactive Nonreactive REJI FELIX (TAMIA) Comment: Interpretive Data: If Hep A IgM Ab is reported as Equivocal, a new sample should be drawn in two weeks for testing. Current interpretive data was last revised on 19. Testing performed by: [facility], [address] [place] [address]., [id number] Hep B core IgM Nonreactive Nonreactive Oscar FELIX (TAMIA) Comment: Interpretive Data If HepB Core IgM Ab is reported as Equivocal, a new sample should be drawn in two weeks for testing. Current interpretive data was last revised on 19. Testing performed by: [facility], [address] [place] [address]., [id number] Hep C Ab Nonreactive Nonreactive REJI FELIX [...] last revised on 2019. Testing performed by: [facility], [address] [place] [address]., [id number] HepBsAg Nonreactive Nonreactive REJI FELIX (TAMIA) Comment:Testing performed by : [address] [address] Blood 02/20/2022 3:04 PM CDT 02/20/2022 6:36 PM CDT Oscar Blanco SALES AND LEASING AGENT LAB MICROBIOLOGY - GENERAL ORDERABLES Final Result REJI FELIX (TAMIA) 1 [facility] Department [place] [address] from Last 3 Months or Most Recently Relevant to Health Maintenance Advance Directives For more information, please contact: [phone] * Full Code (Latest Code Status on File) Date Activated Date Inactivated Comments 01/27/2024 3:50 PM 01/30/2024 3:58 PM * Full Code Date Activated Date Inactivated Comments 03/11/2022 10:22 AM 03/11/2022 5:42 PM Care Teams Arnp Relationship Specialty Start Date End Date Thomas Mejía NP [address] [place] [address] PCP - General Nurse Practitioner 12/16/21 No, Physician 12/16/21 Kade Blanc MD [address] [place] [address] [place] [address] Consulting Physician Neurology 01/30/24
--- OUTSIDE RECORDS SUMMARY | 2024-07-06 18:31 | XMS_ITS | Referral Summary ---
Author Organization [facility] Address [address] [place] [address] Care Team Providers Care Ssds Mk 2 Advanced Operator Name Role Phone Nessa Mejíaroger Hernándezmis PRODUCTION SCHEDULER-YARN DYER Primary Care Pro vider Source Comments [facility],non-owned Affiliates and Associated Physician Practices is amultiple site organization consisting of ambulatory clinics and hospital sitesin [place], [place], [place] and [place]. This disclosure is being madepursuant to the Care Everywhere program and may not contain all information available regarding this patient. Last updated 18.[facility] Allergies No known active allergies Medications * Be aware that medications may not be up to date on this document. Alwaysverify current medications with the patient. Medication Sig Dispensed Refills Start Date End Date Status mupirocin (BACTROBAN) 2 % ointmentIndication s:Wound Infection Apply to affected area 3 times daily Right toe along nail Reasons: Wound Infection 22 g 03/16/2019 Active Additional Information Patient not taking.Reported on 12/09/2023 Levothyroxine Sodium (LEVOTHROID PO) Active linaCLOtide (Linzess) 290 MCG capsule Take 1 (one) capsule by mouth once daily 11/23/2023 11/22/2024 Active ibuprofen (Motrin) 800 MG tablet Active Linzess 145 MCG capsule Take 1 (one) capsule by mouth once daily Active norgestim-eth estrad triphasic LO 0.18/0.215/0.25 MG-25 MCG tabletIndications: Menorrhagia with irregular cycle Take 1 (one) tablet by mouth once daily 84 tablet 2 12/09/2023 Active Active Problems No known active problems Social History Tobacco Use Types Packs/Day Years Used Date Smoking Tobacco: Never Tobacco Cessation:Counseling Given: Not Answered Sex and Gender Information Value Date Recorded Sex Assigned at Not on file Gender Identity Not on file Sexual Orientation Not on file Last Filed Vital Signs Vital Sign Reading Time Taken Comments Blood Pressure 100/68 12/09/2023 10:17 AM CDT Pulse 65 03/16/2019 11:45 AM CDT Temperature 36.9 C (98.5 F) 03/16/2019 11:45 AM CDT Respiratory Rate 16 03/16/2019 11:4 5 AM CDT Oxygen Saturation 98% 03/16/2019 11: 45 AM CDT Inhaled Oxygen Concentration - - Weight 61.6 kg (135 lb 12.8 oz) 024 10:17 AM CDT Height 144.8 cm (4' 9 ) 12/09/2023 10:1 7 AM CDT Body Mass Index 29.39 12/09/2023 10:17 AM CDT Plan of Treatment Not on file Care Teams Ssds Mk 2 Advanced Operator Relationship Specialty Start Date End Date Thomas Mejía APRN-EARNESTINE [address] [place] [phone] PCP - General Nurse Practitioner 12/09/23
--- OUTSIDE RECORDS SUMMARY | 2024-07-06 18:31 | XMS_ITS | Clinical Summary ---
Author Organization [facility] Address [address] [place] [address] Care Team Providers Care Chimney Construction Supervisor Name Role Phone Toni Mejíaross Hernándezmis RESISTOR TESTER-DELIVERY ASSOCIATE Primary Care Pro vider Source Comments [facility],non-owned Affiliates and Associated Physician Practices is amultiple site organization consisting of ambulatory clinics and hospital sitesin [place], [place], [place] and [place]. This disclosure is being madepursuant to the Care Everywhere program and may not contain all information available regarding this patient. Last updated 18.[facility] Allergies No known active allergies Medications * [...] 12/09/2023 10:17 AM CDT Plan of Treatment Health Maintenance Due Date Last Done Comments LIPID TESTING 1983 PAP SMEAR 1983 HIV SCREENING 1998 HEPATITIS C SCREENING 01/12/2001 DTAP/TDAP/TD VACCINES (1 - Tdap) 2002 HEPATITIS B VACCINE (1 of 3 - 19+ 3-dose series) 2002 SCREENING FOR DIABETES 12/09/2023 COVID-19 VACCINE ( season) 2024 05/20/2021, 04/01/2021, 09/17/2020, Additional history exists INFLUENZA VACCINE (#1) 2024 , 04/29/2021, 05/01/2020, Additional history exists DEPRESSION SCREENING 06/01/2024 MAMMOGRAM 09/20/2025 09/21/2023, 09/21/2023 ZOSTER VACCINE (1 of 2) 2033 HIB VACCINE Aged Out No longer eligi ble based on patient's age to complete this topic HPV VACCINE Aged Out No longer eligi ble based on patient's age to complete this topic MENINGOCOCCAL (Group B) VACCINE Aged Out No longer eligible based on patient's age to complete this topic MENINGOCOCCAL VACCINE Aged Out No fabiana arely eligible based on patient's age to complete this topic PNEUMOCOCCAL VACCINE Aged Out No long er eligible based on patient's age to complete this topic Care Teams [employer] Supervisor Relationship Specialty Start Date End Date Thomas Mejía, RESISTOR TESTER-DELIVERY ASSOCIATE [address] [place] [phone] PCP - General Nurse Practitioner 12/09/23
--- OUTSIDE RECORDS SUMMARY | 2024-07-06 18:31 | XMS_ITS | Data Portability ---
[facility] [address] [place] [address] Care Team Providers Care Library Monitor Name Role Phone THOMAS AMIN Primary Care Provider PAOLO SANTOYO Electrochemist SHO PAVON Electrochemist BLAZE CASTELLANOS Hand Surgeon COBLY IRENE Assembler Chassis Assessment No assessment recorded. Plan of Treatment Reminders Order Date Submit Date Provider Last Modified By Organization Details Last Modified Time Details Appointments ANNUAL 30 2024 10:30A M Sudha cespedes [employer] Not available Not available Not available ANY 15 2024 10:30A M January Garcia Not available Not available Not available Lab biopsy , endome trial 2023 024 cgracema [facility], [address], [address], [place], [address], 09/25/2023 09:05:31 pregna ncy test, urine 2023 024 deledsmith In-Office Order, Internal Use Only DO Not Attach Compendium DO Not Attach Compendium, Do Not Delete/merge, [id number] 09/04/2023 11:36:22 TSH + free T4, serum 2023 024 GISEL [facility], [address], [address], [place], [address], 10/14/2023 10:14:26 CMP, serum or plasma 2023 024 [facility], [address] [place] [address], [address], [place], [address], 10/14/2023 10:14:27 lipid panel, serum 2023 024 william [facility], [address] [place] [address], [address], [place], [address], 03/21/2024 11:10:48 TSH, ultra- sensit pedro luis, serum 2023 024 [facility], [address] [place] [address], [address], [place], [address], 03/15/2024 11:19:33 lipid panel, serum 2023 024 gely [facility], [address] [place] [address], [address], [place], [address], 03/28/2024 11:27:59 Referral gyneco logic oncolo gist referr karen julian is self pay, please consid er financ ial or charit y option s. Spanis h Speaki ng. 2023 024 GISEL [facility], [address], [place], [address], 12/09/2023 18:09:54 neurol ogist referr al - 39 y/o HF presen ts for follow up ER visits and hospit alizat ion last month. The meng julian was initia lly seen for breaki ng out in a bad rash on arms, palms and thighs . She was given antivi rals and diagno sed with erythe ma multif charlene. Rash now cleare d.The meng julian return ed to ER as she develo ped a severe headac he that was not contro lled with any meds. She had multip le testin g all normal and was seen by neurol ogist while in the hospit al. She was put on topira mate 25mg bid which she feels has not comple tely resolv ed the headac hes. She went to 3 hospit als with headac he and nausea and no one could give her a diagno sis as to why her headac hes. SHe voices her concer n is her headac he is not well contro lled. She is in agreem ent to try a tripta n for breakt hrough headac hes and contin ue topira mate at higher dose of 50mg bid 2023 024 [facility], [address] [facility] , [address] [address], [place], [address], 05/19/2024 14:35:06 Procedures None record ed. Surgeries None record ed. Imaging None record ed. Medication Orders ondans etron 8 mg disint egrati ng tablet 2023 024 [id number], [address], [place], [place], [id number], 10/13/2023 11:11:39 tramad ol 50 mg tablet 2023 024 [facility] #[id number], [address], [place], [place], [id number], 10/13/2023 11:10:45 Linzes s 145 mcg capsul e 2023 024 [facility], [facility] [place], [place], [id number], 05/17/2024 10:26:07 Drysol Dab-O- Matic 20 % topica l soluti on 2023 024 [facility], [address] [place], [place], [id number], 10/13/2023 12:58:46 famoti dine 20 mg tablet 05/2023 [facility], [address] [place] [address], [id number], 10/13/2023 12:58:43 levoth yroxin e 75 mcg tablet 2023 [facility], [address] [place] [address], [id number], 01/25/2024 12:01:35 rizatr iptan 10 mg disint egrati ng tablet 2023 [facility], [address] [place] [address], [id number], 02/12/2024 18:08:57 Linzes s 145 mcg capsul e 2023 [facility], [address] [place] [address], [id number], 05/17/2024 10:44:58 [facility]sol Dab-O- Matic 20 % topica l soluti on 2023 [facility], [address] [place] [address], [id number], 06/17/2024 14:38:28 famoti dine 20 mg tablet 2023 [facility], [address] [place] [address], [id number], 03/14/2024 12:41:06 levoth yroxin e 75 mcg tablet 2023 024 [facility], [address] [place] [address], [id number], 06/17/2024 14:38:29 Patient TargetsNo targets recorded. Patient Instructions Encounter Date Encounter Id Patient Instructions Last Modified By Organization Details Last Modified Time 09/04/2023 [id number] nausea and vomiting: care instructions deldredsmith Not available 09/04/2023 11:36:21 A healthy lifestyle: care instructions deldredsmith Not available 09/04/2023 11:36:21 chronic pelvic pain: care instructions deldredsmith Not available 09/04/2023 11:36:21 10/13/2023 [id number] irritable bowel syndrome: care instructions yarauz Not available 10/13/2023 11:59:28 S ndrome del intestino irritable: instrucciones de cuidado - [irritable bowel syndrome: care instructions] yarauz Not available 10/13/2023 11:59:28 gastroesophageal reflux disease (GERD): care instructions yarauz Not available 10/13/2023 11:59:28 A healthy lifestyle: care instructions yarauz Not available 10/13/2023 11:59:28 learning about healthy weight yarauz Not available 10/13/2023 11:59:28 hypothyroidism: care instructions yarauz Not available 10/13/2023 11:59:28 vaccine increase fiber, fruits, veggies etc., may try Fiber one prn Increase daily water intake eat small frequent meals do not skip meals/breakfast avoid citric, spicy, fatty foods do not lay down soon after eating--wait at least 2 hours may use OTC Tums/Pepcid/omepraz ole as needed if symptoms persist return for re-evaluation You have hypothyroidism, which means that your body is not making enough thyroid hormone. This hormone helps your body use energy. If your thyroid level is low, you may feel tired, be constipated, have an increase in your blood pressure, or have dry skin or memory problems. You may also get cold easily, even when it is warm. Women with low thyroid levels may have heavy menstrual periods. A blood test to find your thyroid-stimulating hormone (TSH) level is used to check for hypothyroidism. A high TSH level may mean that you have low thyroid. When your body is not making enough thyroid hormone, TSH levels rise in an effort to make the body produce more. The treatment for hypothyroidism is to take thyroid hormone pills. You should start to feel better in 1 to 2 weeks. But it can take several months to see changes in the TSH level. You will need regular visits with your doctor to make sure you have the right dose of medicine. Most people need treatment for the rest of their lives. You will need to see your doctor regularly to have blood tests and to make sure you are doing well. Follow-up care is a hernandez part of your treatment and safety. Be sure to make and go to all appointments, and call your doctor if you are having problems. It's also a good idea to know your test results and keep a list of the medicines you take. gely Not available 10/13/2023 11:47:38 02/09/2024 [id number] medical record request* todd Not available 02/10/2024 13:19:55 If you develop Sudden numbness, tingling, weakness, or loss of movement in your face, arm, or leg, especially on only one side of your body. Sudden vision changes. Sudden trouble speaking. Sudden confusion or trouble understanding simple statements. Sudden problems with walking or balance. A sudden, severe headache that is different from past headaches. To prevent migraines Keep a headache diary so you can figure out what triggers your headaches. Avoiding triggers may help you prevent headaches. Record when each headache began, how long it lasted, and what the pain was like. Use words like throbbing, aching, stabbing, or dull. Write down any other symptoms you had with the headache. These may include nausea, flashing lights or dark spots, or sensitivity to bright light or loud noise. Note if the headache occurred near your period. List anything that might have triggered the headache. Triggers may include certain foods (chocolate, cheese, wine) or odors, smoke, bright light, stress, or lack of sleep. take your medicine at the first sign of a migraine. Find healthy ways to deal with stress. Migraines are most common during or right after stressful times. Take time to relax before and after you do something that has caused a migraine in the past. Try to keep your muscles relaxed by keeping good posture. Check your jaw, face, neck, and shoulder muscles for tension. Try to relax them. When sitting at a desk, change positions often. Stretch for 30 seconds each hour. Get regular sleep and exercise. Eat regular meals, and avoid foods and drinks that often trigger migraines. These include chocolate and alcohol, especially red wine and port. Chemicals used in food, such as aspartame and monosodium glutamate (MSG), also can trigger migraines. So can some food additives, such as those found in hot dogs, quiroga, cold cuts, aged cheeses, and pickled foods. Limit caffeine by not drinking too much coffee, tea, or soda. Do not quit caffeine suddenly, because that can also give you migraines. Do not smoke or allow others to smoke around you. If you need help quitting, talk to your doctor about stop-smoking programs and medicines. These can increase your chances of quitting for good. If you are taking control pills or hormone therapy, talk to your doctor about whether they are triggering your migraines. yarauz Not available 02/09/2024 13:42:35 03/14/2024 [id number] influenza (flu) vaccine: care instructions yarauz Not available 03/14/2024 12:19:23 irritable bowel syndrome: care instructions yarauz Not available 03/14/2024 12:19:23 S ndrome del intestino irritable: instrucciones de cuidado - [irritable bowel syndrome: care instructions] yarauz Not available 03/14/2024 12:19:23 A healthy lifestyle: care instructions yarauz Not available 03/14/2024 12:19:23 gastroesophageal reflux disease (GERD): care instructions yarauz Not available 03/14/2024 12:19:23 learning about healthy weight yarauz Not available 03/14/2024 12:19:23 hypothyroidism: care instructions yarauz Not available 03/14/2024 12:19:23 If you develop Sudden numbness, tingling, weakness, or loss of movement in your face, arm, or leg, especially on only one side of your body. Sudden vision changes. Sudden trouble speaking. Sudden confusion or trouble understanding simple statements. Sudden problems with walking or balance. A sudden, severe headache that is different from past headaches. To prevent migraines Keep a headache diary so you can figure out what triggers your headaches. Avoiding triggers may help you prevent headaches. Record when each headache began, how long it lasted, and what the pain was like. Use words like throbbing, aching, stabbing, or dull. Write down any other symptoms you had with the headache. These may include nausea, flashing lights or dark spots, or sensitivity to bright light or loud noise. Note if the headache occurred near your period. List anything that might have triggered the headache. Triggers may include certain foods (chocolate, cheese, wine) or odors, smoke, bright light, stress, or lack of sleep. take your medicine at the first sign of a migraine. Find healthy ways to deal with stress. Migraines are most common during or right after stressful times. Take time to relax before and after you do something that has caused a migraine in the past. Try to keep your muscles relaxed by keeping good posture. Check your jaw, face, neck, and shoulder muscles for tension. Try to relax them. When sitting at a desk, change positions often. Stretch for 30 seconds each hour. Get regular sleep and exercise. Eat regular meals, and avoid foods and drinks that often trigger migraines. These include chocolate and alcohol, especially red wine and port. Chemicals used in food, such as aspartame and monosodium glutamate (MSG), also can trigger migraines. So can some food additives, such as those found in hot dogs, quiroga, cold cuts, aged cheeses, and pickled foods. Limit caffeine by not drinking too much coffee, tea, or soda. Do not quit caffeine suddenly, because that can also give you migraines. Do not smoke or allow others to smoke around you. If you need help quitting, talk to your doctor about stop-smoking programs and medicines. These can increase your chances of quitting for good. If you are taking control pills or hormone therapy, talk to your doctor about whether they are triggering your migraines. gely Not available 03/14/2024 12:08:26 Reason for Referral Gynecologic Oncologist Refer ral for Endometrium thickened Patient is self pay, please consider financial or dixie options. Burkinan Speaking. Referring Physician: Sudha Peña, Silk Blocker, Encounter Date: 09/04/2023 Neurologist Referral for Lee rainous vertigo Migrainous vertigo 39 y/o HF presents for follow up ER visits and hospitalization last month. The patient was initially seen for breaking out in a bad rash on arms, palms and thighs. She was given antivirals and diagnosed with erythema multiforme. Rash now cleared.The patient returned to ER as she developed a severe headache that was not controlled with any meds. She had multiple testing all normal and was seen by neurologist while in the hospital. She was put on topiramate 25mg bid which she feels has not completely resolved the headaches. She went to 3 hospitals with headache and nausea and no one could give her a diagnosis as to why her headaches. SHe voices her concern is her headache is not well controlled. She is in agreement to try a triptan for breakthrough headaches and continue topiramate at higher dose of 50mg bid Referring Physician: Thomas Amin, Family Medicine, Encounter Date: 02/09/2024 Results Created Date Observation Date Name Description Value Unit Range Abnormal Flag Note LastModifiedBy Organization Detail LastModifiedTime 09/04/19 24 09/08/2023 PATHO LOGY REPOR T . COMMEN T Mater ial submi tted: . endom etriu m - ENDOM ETRIA L BIOPS Y Not Available [facility] ([facility]) [address] [place], [address], 09/08/2023 16:19:46 09/04/1909/08/2023 PATHO LOGY REPOR T . COMMEN T Clini stoney provi ded ICD-1 0: R93.8 9 Not Available [facility] ([facility]) [address] [place], [address], 09/08/2023 16:19:46 09/04/1909/08/2023 PATHO LOGY REPOR T . COMMEN T Diagn osis: ENDOM ETRIA L BIOPS Y: POLYP OID FRAGM ENTS OF ALTER ED ENDOM ETRIU M WITH A MIXED PROLI FERAT PEDRO LUIS AND SECRE TORY TYPE ERNIE GIMENEZ. NO HYPER PLASI A OR CARCI NOMA. GXA 09/07 1025 Local Not Available [facility] ([facility]) [address] [facility], [place], [address], 09/08/2023 16:19:46 09/04/19 24 09/08/2023 PATHO LOGY REPOR T . COMMEN T Lucy macedo d: . Obed acevedo MD, Patho logis t Not Available [facility] ([facility]) [address] [facility], [place], [address], 09/08/2023 16:19:46 09/04/19 24 09/08/2023 PATHO LOGY REPOR T . COMMEN T Gross descr iptio n: . 1 Conta iner, forma barb-f illed , label ed with patie nt ident ifica tion. ENDOM ETRIA L BIOPS Y: MULTI PLE FRAGM ENT(S ) OF MUCUS AND SOFT MATER IAL MEASU RING 3.0 X 2.0 X 0.1 CM IN AGGRE GATE. FILTE RED AND SUBMI TTED IN CASSE TTE(S ) A1. /Sagar NAIDU 09/06 0511 Local Not Available [facility] ([facility]) [address] [facility], [place], [address], 09/08/2023 16:19:46 09/04/19 24 09/08/2023 PATHO LOGY REPOR T . COMMEN T Patho logis t provi ded ICD-1 0: N93.8 Not Available [facility] ([facility]) [address] [facility], [place], [address], 09/08/2023 16:19:46 09/04/19 24 09/08/2023 PATHO LOGY REPOR T . COMMEN T CPT . 99066 1 Not Available [facility] ([facility]) [address] [facility], [place], [address], 09/08/2023 16:19:46 09/04/19 24 09/04/2023 pregn bran test, urine HCG negati ve Not Available In-Office Order Internal Use Only DO Not Attach Compendium DO Not Attach Compendium, Do Not Delete/merge, [id number] 09/04/2023 10:47:20 10/13/19 24 10/14/2023 TSH+F REE T4 TSH 0.966 uIU/m L 0.450- 4.500 Not Available [facility] ([facility]) [address] [place], [address], 10/14/2023 10:14:26 10/13/19 24 10/14/2023 TSH+F REE T4 T4,free(dire ct) 1.37 NG/dL 0.82-1 .77 Not Available [facility] ([facility]) [address] [place], [address], 10/14/2023 10:14:26 10/13/19 24 10/14/2023 COMP. METAB OLIC PANEL (14) glucose 74 mg/dL 70-99 Not Available [facility] ([facility]) [address] [place], [address], 10/14/2023 10:14:27 10/13/19 24 10/14/2023 COMP. METAB OLIC PANEL (14) BUN 15 mg/dL 6-24 Not Available [facility] ([facility]) [address] [place], [address], 10/14/2023 10:14:27 10/13/19 24 10/14/2023 COMP. METAB OLIC PANEL (14) creatinine 0.64 mg/dL 0.57-1 .00 Not Available [facility] ([facility]) [address] [place], [address], 10/14/2023 10:14:27 10/13/19 24 10/14/2023 COMP. METAB OLIC PANEL (14) eGFR 114 mL/mi n/1.7 3 >59 Not Available [facility] ([facility]) [address], [place], [address], 10/14/2023 10:14:27 10/13/19 24 10/14/2023 COMP. METAB OLIC PANEL (14) BUN/creatini ne ratio 23 9-23 Not Available [facility]) [address] [facility], [place], [address], 10/14/2023 10:14:27 10/13/19 24 10/14/2023 COMP. METAB OLIC PANEL (14) sodium 138 mmol/ L 134-14 4 Not Available [facility] ([facility]) [address] [facility], [place], [address], 10/14/2023 10:14:27 10/13/19 24 10/14/2023 COMP. METAB OLIC PANEL (14) potassium 4.3 mmol/ L 3.5-5. 2 Not Available [facility] ([facility]) [address] [facility], [place], [address], 10/14/2023 10:14:27 10/13/19 24 10/14/2023 COMP. METAB OLIC PANEL (14) chloride 101 mmol/ L 96-106 Not Available [facility] ([facility]) [address] [facility], [place], [address], 10/14/2023 10:14:27 10/13/19 24 10/14/2023 COMP. METAB OLIC PANEL (14) carbon dioxide, total 21 mmol/ L 20-29 Not Available [facility] ([facility]) [address] [facility], [place], [address], 10/14/2023 10:14:27 10/13/19 24 10/14/2023 COMP. METAB OLIC PANEL (14) calcium 10.0 mg/dL 8.7-10 .2 Not Available [facility] ([place] [facility]) [address] [facility], [place], [address], 10/14/2023 10:14:27 10/13/19 24 10/14/2023 COMP. METAB OLIC PANEL (14) protein, total 7.6 g/dL 6.0-8. 5 Not Available [facility] ([place] [facility]) [address], [place], [address], 10/14/2023 10:14:27 10/13/19 24 10/14/2023 COMP. METAB OLIC PANEL (14) albumin 4.9 g/dL 3.9-4. 9 Not Available [facility] ([facility] [facility]) [address], [place], [address], 10/14/2023 10:14:27 10/13/19 24 10/14/2023 COMP. METAB OLIC PANEL (14) globulin, total 2.7 g/dL 1.5-4. 5 Not Available [facility] ([facility]) [address] [facility], [place], [address], 10/14/2023 10:14:27 10/13/19 24 10/14/2023 COMP. METAB OLIC PANEL (14) A/G ratio 1.8 1.2-2. 2 Not Available [facility] ([facility]) [address] [facility], [place], [address], 10/14/2023 10:14:27 10/13/19 24 10/14/2023 COMP. METAB OLIC PANEL (14) bilirubin, total 0.4 mg/dL 0.0-1. 2 Not Available [facility] ([facility] [facility]) [address] [facility], [place], [address], 10/14/2023 10:14:27 10/13/19 24 10/14/2023 COMP. METAB OLIC PANEL (14) alkaline phosphatase 53 IU/L 44-121 Not Available [facility] [facility] [address] [facility], [place], [address], 10/14/2023 10:14:27 10/13/19 24 10/14/2023 COMP. METAB OLIC PANEL (14) AST (SGOT) 23 IU/L 0-40 Not Available [facility] ([facility]) [address] [place], [address], 10/14/2023 10:14:27 10/13/19 24 10/14/2023 COMP. METAB OLIC PANEL (14) ALT (SGPT) 19 IU/L 0-32 Not Available [facility] ([facility]) [address] [place], [address], 10/14/2023 10:14:27 03/14/20 24 03/15/2024 TSH RFX ON ABNOR MAL TO FREE T4 TSH 0.987 uIU/m L 0.450- 4.500 Not Available [facility] ([facility]) [address] [place], [address], 03/15/2024 11:19:33 03/21/20 24 03/22/2024 LIPID PANEL cholesterol, total 196 mg/dL 100-19 9 Not Available [facility] ([facility]) [address] [place], [address], 03/22/2024 08:24:58 03/21/20 24 03/22/2024 LIPID PANEL triglyceride s 41 mg/dL 0-149 Not Available [facility] [address] [place], [address], 03/22/2024 08:24:58 03/21/20 24 03/22/2024 LIPID PANEL HDL cholesterol 75 mg/dL >39 Not Available [facility] [address] [place], [address], 03/22/2024 08:24:58 03/21/20 24 03/22/2024 LIPID PANEL VLDL cholesterol mariela 8 mg/dL 5-40 Not Available [facility]) [address] [place], [address], 03/22/2024 08:24:58 03/21/20 24 03/22/2024 LIPID PANEL LDL chol calc ([facility]) 113 mg/dL 0-99 above high normal Not Available [facility] ([facility]) [address] [facility], [place], [address], 03/22/2024 08:24:58 08/20/19 24 08/20/2023 US, pelvi s, trans abdom inal + trans vagin al No observ ation record ed. [facility] [address] [address], [place], [address], 10/13/2023 11:54:00 09/21/19 24 09/21/2023 MAMMO , scree andry, digit al, bilat eral No observ ation record ed. [facility] Scheduling [address] [facility], [place], [address], 10/13/2023 11:53:59 01/25/20 24 01/25/2024 XR, chest , 2 view No observ ation record ed. [facility] [address], [place], [address], 02/09/2024 12:57:03 02/10/20 24 01/27/2024 CT, head, w/wo contr ast No observ ation record ed. [facility], [place] Not Available 2023 12:06:19 Result Notes None recorded. Problems Name Problem SNOMED Code Status Onset Date Resolution Date Notes Provider Name and Address Organization Details Recorded Time Retrover obinna uterus 474147910 Completed 201708/17/2020 AMMY Wilson, [place] - [facility] 11:28:46 Bacteria l vaginosi s 228358720 Completed 201711/24/2018 COLLEEN Palmer null, MARCELA - [facility] 14:08:09 Headache 63421754 Completed 201708/17/2020 Yamileth Dasilva RN null, [place] - [facility] 11:28:18 Pain in pelvis 21940564 Completed 202011/08/2020 Yamileth Dasilva RN null, [place] - [facility] 12:13:46 Irritabl e bowel syndrome 97960364 Active 2020 Tracey julian, [place] null, [place] - [facility] 11:05:28 Chronic constipa tion 189401448 Active 2020 Tracey julian, [place] null, [place] - [facility] 11:05:23 Body mass index 25-29 - overweig ht 052861278 Active 2021 JUAN ANTONIO GarciaSHAUNA Attn: Accountin g,[address] [place], [address], [place] - [facility] 11:19:40 Gastroes ophageal reflux disease 472249315 Active 2021 [facility]: Accountin g,[address] [place], [address], [place] [facility] 2 11:19:40 Lesion of liver 296148856 Active 2021 JUAN ANTONIO GarciaSHAUNA Attn: Accountin g,[address] [place], [address], [place] [facility] 3 11:17:19 Right upper quadrant pain 292871916 Active 2022 JUAN ANTONIO GarciaSHAUNA Attn: Accountin g,[address] [place], [address], [place] [facility] 3 11:17:19 Aphthous ulcer of mouth 236560034 Completed 202204/14/2023 JUAN ANTONIO GarciaSHAUNA Attn: Accountin g,[address] [place], [address], [place] [facility] 3 10:34:04 Venous varices 907535399 Active 2022 Thomas Amin [facility] Attn: Zoran g,[address] [facility], [place], [address], [place] [facility] 3 11:17:18 Herpes simplex 85071336 Active 2022 [facility] Attn: Accountin g,[address] [facility], [place], [address], [place] [facility] 3 10:33:54 Nausea 886007226 Completed Adithya Suggs null, [place] - [facility] 5 14:27:33 Erythema multifor me 71466882 Active 2023 Dx at [facility] Thomas Amin [facility] Attn: Zoran g,[address] [facility], [place], [address], [place] [facility] 4 13:01:48 Migraino us vertigo [id number] Active 2023 Thomas Amin [facility] Attn: Zoran g,[address] [facility], [place], [address], [place] [facility] 4 12:08:55 Impaired glucose toleranc e in pregnanc y 405421080 Completed 05/17/2015 Tracey rBaga [place] [facility] 6 14:48:22 Impaired glucose toleranc e in pregnanc y 921567572 Completed Gretta Traore RN [place] [facility] 5 12:05:54 Intraute rine pregnanc y 26241763 Completed 05/17/2015 Tracey Braga [place] [facility] 6 14:48:22 Intraute rine pregnanc y 93606995 Completed rGetta Traore [place] [facility] 5 12:05:54 Carpal tunnel syndrome 64844671 Active Tracey julian [place] [facility] 2 11:05:09 Carpal tunnel syndrome 93563587 Completed Gretta Traore [place] [facility] 5 12:05:54 Menorrha yana 913960925 Active Tracey Betacorey julian [place] [facility] 2 11:05:48 Acute pharyngi tis 317649321 Completed 11/24/2018 COLLEEN Palmer [place] [facility] 9 14:08:16 Chlamydi al infectio n [id number] Completed 08/27/2018 [place] Adams [place] [facility] 9 10:31:56 On examinat ion - breast lump palpated Completed 08/17/2020 Yamileth Dasilva [place] [facility] 1 11:28:30 Varicose veins of lower extremit y 28879699 Active Tracey julian [place] [facility] 2 11:05:05 Abdomina l pain 09068034 Completed 08/27/2018 [place] [facility] 9 10:31:31 Candidia sis 42675765 Completed 08/27/2018 [place] [facility] 9 10:31:49 Excessiv e sweating 32715903 Active 2016 Tracey julian [place] [facility] 2 11:05:34 Abnormal thyroid hormone 052721604 Completed 201608/27/2018 [place] [facility] 9 10:32:21 Onychomy cosis 087275214 Completed 201608/17/2020 Yamileth Dasil[place] [facility] 1 11:28:34 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 Procedures Surgical History Date Name Laterality Status Provider Name and Address Organization Details Recorded Time 09/21/19 24 Date of Last Mammogram completed Deana Vasquez RN [facility] 09/21/2023 13:03:17 09/04/19 24 Endometrial Biopsy completed JUAN ANTONIO Hernandes-BC Attn: Accounting, [address] [facility], [place], [address], [facility] 09/04/2023 15:19:58 07/21/19 24 Date of Last Pap Smear completed Deana Vasquez RN [facility] 07/24/2023 16:21:22 06/27/19 21 Endometrial Biopsy completed DENNIS GAMA Attn: Accounting, [address] [facility], [place], [address], [facility] 06/27/2020 14:14:12 augmentation mammoplasty completed COLLEEN Berger [facility] 10/12/2019 09:52:03 Cholecystectomy completed Adithya Suggs [facility] 06/13/2014 10:54:47 Tubal Ligation completed Felicia Gould [facility] 05/03/2015 11:35:00 Imaging Results Imaging Date Name Status LastModified by Organization Details LastModified Time 08/20/2023 US, pelvis, transabdominal + transvaginal completed [facility] [address] [place], [address], 10/13/2023 11:54:00 09/21/2023 MAMMO, screening, digital, bilateral completed [facility] [place] Tamia [facility] Scheduling [address] [facility] [place], [address], 10/13/2023 11:53:59 01/25/2024 XR, chest, 2 view completed [facility] [address] [facility] [address], [place], [address], 02/09/2024 12:57:03 01/27/2024 CT, head, w/wo contrast completed [email or web address] Information not available 03/14/2024 12:06:19 Procedure Notes None recorded. Medical Equipment None Reported. Allergies No known drug allergies Medications Name Sig Start Date Stop Date Status Note LastModified by Organization Details LastModified Time Prescript ion - New 04/07 completed Not Available Not Available Not Available methocarb vahid 500 mg tablet 04/13 completed Not Available Not Available Not Available neomycin- polymyxin -hydrocor t 3.5 mg/mL-10, 000 unit/mL-1 % ear solution INSTILL 4 DROPS INTO AFFECTED EAR(S) 3 TIMES A DAY 02/18 completed Not Available Not Available Not Available Prenatabs Rx 29 mg iron-1 mg tablet active Not Available Not Available Not Available Xerac AC 6.25 % topical solution Apply 1 applicat ion every day by topical route. 01/15 completed Not Available Not Available Not Available azithromy kaylie 250 mg tablet TAKE 2 TABLETS BY MOUTH TODAY, THEN TAKE 1 TABLET DAILY FOR 4 DAYS 04/13 completed Not Available Not Available Not Available ibuprofen 800 mg tablet active Not Available Not Available Not Available Lidocaine Viscous 2 % mucosal solution RUBINA 15 ML BY MOUTH CADA THREE HORAS 10/22 completed Not Available Not Available Not Available benzonata te 200 mg capsule TAKE 1 CAPSULE BY MOUTH THREE TIMES DAILY FOR 5 DAYS NEEDED FOR COUGH 07/21 completed Not Available Not Available Not Available hydrocodo ne 5 mg-acetam inophen 325 mg tablet TAKE 1 TO 2 TABLETS BY MOUTH EVERY 4 HOURS NEEDED FOR PAIN. DO NOT EXCEED 8 TABLETS PER DAY 03/20 completed Not Available Not Available Not Available ondansetr on HCl 4 mg tablet TAKE 1 TABLET BY MOUTH EVERY 6 HOURS 03/14 completed Not Available Not Available Not Available prednison e 20 mg tablet TAKE 2 TABLETS BY MOUTH DAILY FOR 5 DAYS 02/08 completed Not Available Not Available Not Available Rocephin 1 gram solution for injection Take 1 g as needed by injectio n route as directed for 1 day. 2013 active Not Available Not Available Not Avai lable topiramat e 25 mg tablet active Not Available Not Available Not Available metronida zole 500 mg tablet TAKE 1 TABLET BY MOUTH TWICE DAILY FOR 7 DAYS 03/23 completed Not Available Not Available Not Available prochlorp erazine maleate 10 mg tablet 10/22 completed Not Available Not Available Not Available acyclovir 400 mg tablet Take 1 tablet 5 times a day by oral route for 5 days. 04/14 completed Not Available Not Available Not Available doxycycli ne monohydra te 100 mg tablet 10/22 completed Not Available Not Available Not Available tramadol 50 mg tablet TAKE 1 TABLET BY MOUTH EVERY 6 HOURS 10/12 completed Not Available Not Available Not Available ondansetr on 8 mg disintegr ating tablet DISSOLVE 1 TABLET ON THE TONGUE TWICE DAILY 10/12 completed Not Available Not Available Not Available pantopraz ole 20 mg tablet,de layed release TAKE 2 TABLETS BY MOUTH ONCE DAILY 10/22 completed Not Available Not Available Not Available levothyro xine 75 mcg tablet TAKE 1 TABLET BY MOUTH EVERY MORNING FOR THYROID active Not Available Not Available No t Available Vitamin tablet Take 1 tablet every day by oral route. 2014 active Not Available Not Available Not Avai lable oxycodone -acetamin ophen 5 mg-325 mg tablet TK 1 T PO Q 4 H PRN P 04/13 completed Not Available Not Available Not Available terbinafi ne HCl 250 mg tablet Take 1 tablet every day by oral route. 11/18 completed Not Available Not Available Not Available alprazola m 0.5 mg tablet TAKE 1 TABLET BY MOUTH 1 HOUR BEFORE LEAVING FOR APPOINTM ENT AND 1 TABLET AT ARRIVAL FOR PROCEDUR E 07/29 completed Not Available Not Available Not Available famotidin e 20 mg tablet Take 1 tablet twice a day by oral route, for reflux/G ERD. 2023 active Not Available Not Available Not Avai lable Nortrel 1/35 (28) 1 mg-35 mcg tablet active Not Available Not Available Not Available triamcino lone acetonide 0.1 % dental paste Take 1 applicat ion 4 times a day by dental route. 06/18 completed Not Available Not Available Not Available DOK 100 mg capsule TK ONE C PO BID 04/13 completed Not Available Not Available Not Available hydrocort isone valerate 0.2 % topical ointment APPLY TOPICALL Y TO THE AFFECTED AREA TWICE DAILY NEEDED FOR RASH OR ITCHING active Not Available Not Available No t Available rizatript an 10 mg disintegr ating tablet TAKE ONE-HALF - ONE TABLET BY MOUTH ONCE FOR MIGRAINE . MAY DISOLVE IN WATER AND DRINK REPEAT DOSE ONE TIME AFTER TWO HOURS. MAX OF 30MG IN 24 HOURS active Not Available Not Available No t Available levothyro xine 50 mcg tablet TAKE 1 TABLET BY MOUTH EVERY DAY 03/21 completed Not Available Not Available Not Available cephalexi n 500 mg capsule TAKE 1 CAPSULE BY MOUTH EVERY 12 HOURS 02/08 completed Not Available Not Available Not Available pantopraz ole 40 mg tablet,de layed release TAKE 1 BY MOUTH ONCE DAILY 03/20 completed Not Available Not Available Not Available erythromy kaylie 5 mg/gram (0.5 %) eye ointment 1 APPLICAT ION INTO THE LOWER CONJUNCT IVAL SAC OF AFFECTED EYE 4 TIMES PER DAY FOR 10 DAYS 07/13 completed Not Available Not Available Not Available nortripty line 10 mg capsule Take 1 capsule every day by oral route. 06/[address] Magaly irby Not Available Not Available Not Available ferrous sulfate 325 mg (65 mg iron) tablet active Not Available Not Available Not Available ibuprofen 400 mg tablet 03/14 completed Not Available Not Available Not Available omeprazol e 20 mg capsule,d elayed release TAKE ONE CAPSULE BY MOUTH DAILY IN THE MORNING active Not Available Not Available No t Available Drysol Dab-O-Mat ic 20 % topical solution APPLY TO THE AFFECTED AREA(S) AT BEDTIME FOR 2-3 DOSES OR UNTIL DRY. USE 2-3 TIMES WEEKLY active Not Available Not Available No t Available norethind duong acetate 5 mg tablet Take 1 tablet every day by oral route. 04/14 completed Not Available Not Available Not Available gabapenti n 100 mg capsule TAKE 1 CAPSULE BY MOUTH THREE TIMES A DAY 04/14 completed Not Available Not Available Not Available ibuprofen 600 mg tablet active Not Available Not Available Not Available methylpre dnisolone 4 mg tablets in a dose pack TAKE 6 TABLETS ON DAY 1 DIRECTED ON PACKAGE AND DECREASE BY 1 TAB EACH DAY FOR A TOTAL OF 6 DAYS 04/13 completed Not Available Not Available Not Available ondansetr on 4 mg disintegr ating tablet DIS ONE T PO Q 6 H PRN N 11/13 /2020 completed Not Available Not Available Not Available fluticaso ne propionat e 50 mcg/actua tion nasal spray,william pension SPRAY 1 SPRAY INTO EACH NOSTRIL EVERY DAY 04/13 completed Not Available Not Available Not Available Diflucan 200 mg tablet Take 1 tablet by oral route as directed . 05/12 completed Not Available Not Available Not Available doxycycli ne hyclate 100 mg tablet 12/26 completed Not Available Not Available Not Available dicyclomi ne 10 mg capsule Take 1 capsule 3 times a day by oral route as needed. 09/03 completed Not Available Not Available Not Available naproxen 500 mg tablet TAKE 1 TABLET BY MOUTH TWICE A DAY 10/22 completed Not Available Not Available Not Available diazepam 5 mg tablet TK 1 T PO Q 8 H PRA 04/13 completed Not Available Not Available Not Available azithromy kaylie 1 gram oral packet Take 1 packet as needed by oral route as directed for 1 day. 05/12 completed Not Available Not Available Not Available Gas Relief Ultra Strength 180 mg capsule Take 1 capsule twice a day by oral route. 09/05 completed Not Available Not Available Not Available Jolivette 0.35 mg tablet Take 1 tablet every day by oral route. 2014 active Not Available Not Available Not Avai lable Tri-Sprin elvira (28) 0.18 mg(7)/0.2 15 mg(7)/0.2 5 mg(7)-35 mcg tablet active Not Available Not Available Not Available nitrofura ntoin monohydra te/macroc rystals 100 mg capsule TAKE ONE CAPSULE BY MOUTH EVERY TWELVE HOURS FOR 7 DAYS 02/08 completed Not Available Not Available Not Available Gas Relief Extra Strength 125 mg chewable tablet CHEW AND SWALLOW 1 TABLET BY MOUTH FOUR TIMES DAILY NEEDED FOR CRAMPING / BLOATING / GAS/ NAUSEA active Not Available Not Available No t Available Seasoniqu e 0.15 mg-30 mcg (84)/10 mcg(7) tablets,3 month dose pack Take 1 tablet every day by oral route. 07/01 completed Not Available Not Available Not Available RhoGAM Ultra-Sandip tered PLUS 1,500 unit (300 mcg) intramusc ular syringe 2014 active Not Available Not Available Not Avai lable Metamucil Fiber Singles 3.4 gram oral powder packet Take 1 packet 3 times a day by oral route as needed. 10/11 completed Not Available Not Available Not Available Linzess 145 mcg capsule Take 1 capsule every day by oral route, for constipa tion. 05/17 completed Dose increase d in November 2023 Not Available Not Available Not Available Linzess 290 mcg capsule TAKE ONE CAPSULE BY MOUTH ONCE EVERY DAY 06/21 completed No longer on 340B Not Available Not Available Not Available Vitamins Plus Low Iron 27 mg iron-1 mg tablet active Not Available Not Available No t Available Wal-Phed D 120 mg tablet,ex tended release TAKE 1 TABLET BY MOUTH EVERY 12 HOURS FOR 10 DAYS 09/03 completed Not Available Not Available Not Available Tri-Lo-Ma rzia 0.18 mg/0.215 mg/0.25 mg-25 mcg tablet TAKE 1 TABLET BY MOUTH EVERY DAY 03/14 completed Not Available Not Available Not Available Linzess 72 mcg capsule Take 4 capsules every day by oral route. 2024 active 07/01/24: PAP approved until 07/01/25. #120 w/ 3 rfs. Called into medicate Not Available Not Available Not Available Astepro Allergy 205.5 mcg (0.15 %) nasal spray Stroud 1 spray twice a day by intranas al route. 09/03 completed lot whct exp 11/2024 SHAWNA Not Available Not Available Not Available Vitals Date Recorded Body height Body mass index (BMI) Body weight Heart rate Respiratory rate Systolic blood pressure Diastolic blood pressure Provider Name and Address Organization Details Last Updated DateTime 152.4 cm 26.5 kg/m2 55944.7 7 g 58 /min 16 /min 107 mm[Hg] 65 mm[Hg] Wendi Mathias [place] [facility] 11:18:55 Date Recorded Body height Provider Name an d Address Organization Details Last Updated DateTime 10/13/2023 152.4 cm Tracey julian [place] 10/13/2023 11:01:55 Date Recorded Body mass index (BMI) Body weight Body temperature Systolic blood pressure Diastolic blood pressure Provider Name and Address Organization Details Last Updated DateTime 10/13/2023 26.5 kg/m2 21357.1 6 g 98 [degF] 102 mm[Hg] 70 mm[Hg] Josie Leal MA [facility] 11:14:30 Date Recorded Body height Oxygen saturation Oxygen saturation in Arterial blood by Pulse oximetry Heart rate Body mass index (BMI) Body weight Systolic blood pressure Diastolic blood pressure Provider Name and Address Organization Details Last Updated DateTime 152.4 cm 96 % 96 % 60 /min 25.9 kg/m2 30740.9 9 g 110 mm[Hg] 70 mm[Hg] Tracey julian MA [facility] 12:29:00 Date Recorded Body height Body mass index (BMI) Body weight Body temperature Heart rate Oxygen saturation Oxygen saturation in Arterial blood by Pulse oximetry Systolic blood pressure Diastolic blood pressure Provider Name and Address Organization Details Last Updated DateTime 152.4 cm 26.1 kg/m2 56647.5 9 g 98.3 [degF] 78 /min 97 % 97 % 100 mm[Hg] 62 mm[Hg] Josie Leal MA [facility] 11:25:44 Date Recorded Body height Provider Name an d Address Organization Details Last Updated DateTime 03/21/2024 152.4 cm Josie lewis MA [facility] 03/21/2024 11:09:54 Social History Question Answer Notes LastModified by Organizat ion Details LastModified Time Tobacco Smoking Status Never Smoker Lucinda Gonzalez MA null, [facility] 05/18/2014 14:26:30 Do You Have An Advance Directive? No Information not available 08/17/2020 What Is Your Level Of Alcohol Consumption? None Information not available 06/13/2014 If You Are , What Was Your Level Of Alcohol Consumption Prior To ? None Information not available 09/13/2014 Are You Blind Or Do You Have Difficulty Seeing? No Information not available 08/17/2020 Is Blood Transfusion Acceptable In An Emergency? No Information not available 09/05/2015 What Is Your Level Of Caffeine Consumption? Occasional [email or web address] Information not available 07/18/2014 How Much Tobacco Do You Chew? None Information not available 11/29/2014 In The 14 Days Before Symptom Onset, Have You Had Close Contact With A Laboratory-confir med COVID-19 While That Case Was Ill? No Information not available 08/17/2020 In The 14 Days Before Symptom Onset, Have You Had Close Contact With A Person Who Is Under Investigation For COVID-19 While That Person Was Ill? No Information not available 08/17/2020 Have You Been To An Area Known To Be High Risk For COVID-19? No Information not available 08/17/2020 Are You Currently Employed? No Information not available 09/13/2014 Are You Deaf Or Do You Have Serious Difficulty Hearing? No Information not available 08/17/2020 What Type Of Diet Are You Following? REGULAR Information not available 11/29/2014 Which Illicit Or Recreational Drugs Have You Used? No Information not available 06/13/2014 Education 12 Information no t available 09/05/2015 Are There Any Guns Present In Your Home? No Information not available 08/17/2020 Live Alone Or With Others? With Others Information not available 09/13/2014 Marital Status [facility] Informatio n not available 09/13/2014 What Was The Date Of Your Most Recent Tobacco Screening? 03/14/2024 [email or web address] Information not available 03/14/2024 How Many Children Do You Have? 4 [email or web address] Information not available 05/03/2015 Performs Monthly Self-breast Exam? No [email or web address] Information no t available 07/18/2014 Do You Use Protection During Sex? No Information not available 11/29/2014 What Is Your Relationship Status? Information not available 11/29/2014 Do You Use Your Seat Belt Or Car Seat Routinely? Yes Information not available 08/17/2020 Seat Belts Used Routinely Yes [email or web address] Information not available 07/18/2014 Are You Sexually Active? Yes Information not available 09/05/2015 Do You Have Smoke And Carbon Monoxide Detectors In Your Home? Yes Information not available 08/17/2020 Are You Passively Exposed To Smoke? No Information no t available 08/17/2020 How Much Tobacco Do You Smoke? No [email or web address] Information not available 11/24/2018 Smoking Pre- No Information not available 09/13/2014 General Stress Level Low Information not available 09/05/2015 Do You Feel Stressed (tense, Restless, Nervous, Or Anxious, Or Unable To Sleep At Night)? [email or web address] Information not available 12/26/2021 Do You Use Any Illicit Or Recreational Drugs? No Information not available 08/17/2020 Do You Use Sunscreen Routinely? No [email or web address] Information not available 07/18/2014 Has Tobacco Cessation Counseling Been Provided? No [email or web address] Information not available 09/05/2021 On What Date Was Tobacco Cessation Counseling Provided? 02/09/2024 Information not available 02/09/2024 Do You Or Have You Ever Used Any Other Forms Of Tobacco Or Nicotine? No Information not available 08/17/2020 Sex: Female Functional Status Question Answer Note LastModified by Organizat ion Details LastModified Time Are you able to care for yourself? Yes Information not available 08/17/2020 What is your exercise level? Occasional Information not available 09/05/2015 Mental Status None recorded. Family History Relationship Description Onset Age of this Age Resolved Age Notes LastModified by Organization Details LastModified Time Father Diabetes mellitus [email or web address] Not available 02/01 14:48:22 Mother Hypercholest erolemia [email or web address] Not available 2020 12:37:03 Mother Hypertensive disorder 40 [email or web address] Not available 2020 12:37:24 Medical History Condition Response Heart Problems N Other N High Blood Pressure N Breast Cancer N Thyroid Problems Y Kidney or Bladder Problems N Lung Disease N Depression N Blood Clots N GI Problems Y Acne N Breast Problem N Eating Disorder N Anemia Y Anesthesia Complications N Headaches/Migraines N Ovarian Cancer N Diabetes N Anxiety Disorder N Muscle, Joint, or Bone Problems N Blood Transfusions N Seizures/Epilepsy N Arthritis N Polyps N Infertility N Acid Reflux (GERD) Y Cancer N Stroke N Abuse/Domestic Violence N Asthma N Endometriosis N High Cholesterol N Hepatitis N Liver Disease N Heart Disease N Fibromyalgia N Pre-Eclampsia N Hypertension N Osteoporosis N Kidney Disease N Gynecological History Statement/Question Response Abnormal Pap N Date of Last Mammogram 09/21/2023 Flow Moderate Date of LMP 02/21/2024 STIs/STDs N HPV Vaccine N Duration of Flow (days) 6 Age at Menarche 11 Current Control Method Tubal Ligat ion Age at First Child 19 Sexually Active? Y Menses Monthly Yes Date of Last Pap Smear 07/21/2023 Sexual Problems? N LMP Approximate Desired Control Method Sterilizati on Obstetrics History GPAL:G 4 P 4 0 0 4 Type Value Multiple Births 0 Full Term 4 Induced 0 Spontaneous 0 Premature 0 Living 4 Ectopics 0 Total 4 Immunizations Vaccine Type Date Status Note Provider Nam e and Address Organization Details Recorded Time Influenza, split virus, quadrivalent, preservative 0 completed Not Available [facility] 02/27/2022 02:01:45 COVID-19, mRNA, LNP-S, PF, 30 mcg/0.3 mL dose 1 completed Not Available [facility] 02/27/2022 02:01:45 COVID-19, mRNA, LNP-S, PF, 30 mcg/0.3 mL dose 1 completed Not Available [facility] 02/27/2022 02:01:45 COVID-19, mRNA, LNP-S, PF, 30 mcg/0.3 mL dose 1 completed Not Available [facility] 02/27/2022 02:01:45 Influenza, split virus, quadrivalent, preservative 7 completed Not Available [facility] 06/18/2019 02:33:04 Influenza, split virus, quadrivalent, preservative 8 completed Not Available [facility] 06/18/2019 02:36:29 Tdap 5 completed Not Available [facility] 06/18/2019 02:30:18 Influenza, split virus, quadrivalent, PF 1 completed Yamileth Dasilva [place] [facility] 04/29/2021 12:38:25 Influenza, split virus, quadrivalent, preservative 3 completed JANUARY Garcia Attn: Accounting[address] [facility], [place], [address], [facility] 04/14/2023 17:35:06 Influenza, split virus, trivalent, preservative 4 completed JANUARY Garcia Attn: Accounting[address] [facility], [place], [address], [facility] 03/14/2024 17:02:44 Past Encounters Encounter ID Performer Location Encounter Start Date Encounter Closed Date Diagnosis/Indication Diagnosis SNOMED-CT Code Diagnosis ICD10 Code Diagnosis [id number] [address] [place] [address] 05/18/2014 14:18:28 05/22/2014 12:36:55 Chlamydial infection [id number] Sho Pavon Donta ([employer]) [address] [place] [address] 06/13/2014 10:37:54 06/13/2014 13:23:56 Gynecologic examination [id number] Normal female exam. Venereal d isease screening [id number] Pt. wants vaginal culture but not blood work. Culture ordered on paper. [id number] JUDIE Gonzalez ([employer]) [address] [place] [address] 07/18/2014 09:07:33 07/18/2014 13:52:07 [id number] Hydration and nutrition discussed. US ordered. vitamins and Zofran sent to pharmacy. labs ordered. RTO 4 weeks for NOB appointmen t. [id number] JUDIE Gonzalez ([employer]) [address] [place] [address] 08/15/2014 13:54:34 08/15/2014 15:53:11 [id number] See flow sheet [id number] Donta ([employer]) [address] [place] [address] 09/13/2014 09:46:47 09/13/2014 10:11:42 [id number] See flow sheet [id number] Tama HC ([employer]) [address] [place] [facility] [place] [address] 10/04/2014 10:11:44 10/04/2014 10:35:54 [id number] See flow sheet [id number] Paige Lawton MA Tama [facility] ([employer]) [address] [place] [facility] [place] [address] 11/01/2014 11:26:57 11/01/2014 13:03:50 [id number] See flow sheet [id number] Tomás More [facility] ([employer]) [address] [place] [facility] [place] [address] 11/29/2014 10:52:23 11/30/2014 14:02:04 [id number] See flow sheet [id number] Pam Mittalhalto HC ([employer]) [address] [place] [address] 12/13/2014 10:31:30 12/13/2014 13:21:50 [id number] See flow sheet [id number] Sho Mittalhalto ([employer]) [address] [place] [address] 12/27/2014 11:07:12 12/27/2014 11:30:48 [id number] See flow sheet [id number] Sho Mittalhalto ([employer]) [address] [place] [address] 01/10/2015 10:58:21 01/10/2015 11:29:14 [id number] See flow sheet [id number] Denise Martin 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 with wrist splints. Await delivery for relief, dwp. [id number] [facility] ([facility]GING MACHINE CATCHER) [address] [place] [address] 02/16/2015 09:53:21 02/16/2015 10:54:35 [id number] See flow sheet Carpal fan ananya syndrome [id number] Pt. with wrist splints. Await delivery for relief, dwp. [id number] Sho Longo (EDGING MACHINE CATCHER) [address] [facility] [place] [place] [address] 03/07/2015 13:23:39 03/07/2015 15:08:47 care 558995024 Z39.2 Pt. doing well. If carpel tunnel syndrome not resolved in 4 more weeks, will send pt. for surgical evaluation , dwp. Female sterilization 608 80750 Z30.2 Essure vs Laparoscop y discussed. Vasectomy also discussed. Informatio n given in [place]. RTO 4 weeks for final ppv and to schedule sterilizat ion. [id number] Sho Longo (EDGING MACHINE CATCHER) [address] [place] [address] 04/05/2015 11:32:20 04/05/2015 12:21:43 care 370875432 Z39.2 Carpel tunnel syndrome not resolved. See below. Pt. and baby doing well. Carpal fan ananya syndrome 74123627 G56.01 G56.02 Symptoms not resolved 6 weeks . Will refer for nerve conduction studies. Female sterilization 608 97063 Z30.2 Pt. desires laparoscop y. Will schedule. [id number] Sho Longo (EDGING MACHINE CATCHER) [address] [place] [address] 05/03/2015 11:17:23 05/03/2015 12:12:46 Postoperative visit 593667002 Z09 Pt. doing well. Released to all normal activities including sexual intercours e. Carpal fan ananya syndrome 55104649 G56.01 G56.02 Appointmen t made with neurology. Infomation given to pt. [id number] Sho Longo (EDGING MACHINE CATCHER) [address] [place] [address] 05/16/2015 16:56:17 05/16/2015 17:49:29 Menorrhagia 973372228 N92.0 Option of taking progestero ne to make the bleeding less d/w pt. Pt. agreeable. Rx sent to pharmacy. Records requested from Dr. Lake. Pelvic US ordered. Possible options of [place] and hysterecto my discussed. RTO 3 days p US for results and POC. Precaution s for lightheade dness, dizziness discussed. Pt. and know to take her to the ED. [id number] Sho Longo (EDGING MACHINE CATCHER) [address] [place] [address] 06/06/2015 11:32:02 06/06/2015 11:56:08 Menorrhagia 354601523 N92.0 Pelvic US was completely normal, dwp. Option of hydrotherm al endometria l ablation d/w pt. and . Procedure discussed. Likelihood of less bleeding and no bleeding after the procedure discussed. Handout given. They will research it and let me know if she wants to have it done. Need for pre-OP visit within 2 weeks of the surgery discussed. [id number] Asa Leonard PA-C [facility] [address] [place] [address] 08/07/2015 14:52:43 08/07/2015 15:45:53 Acute pharyngitis 585569923 J02.9 [id number] Sho Longo (EDGING MACHINE CATCHER) [address] [place] [address] 09/05/2015 10:15:00 09/05/2015 13:04:11 Gynecologic examination 20363099 Z01.419 Last pap done 08/16/14 was normal with negative hr-HPV. Therefore, no pap needed. Venereal d isease screening 047959402 Z11.3 RTo 2 weeks for results. On examina tion - breast lump palpated 531298515 N63 Pt. just stopped breast feeding last week. Masses at 2:00 and 7:00 likely blocked milk ducts. RTO 2 weeks for repeat breast exam. [id number] Sho Longo (EDGING MACHINE CATCHER) [address] [facility] [place] [address] 09/19/2015 11:11:47 09/19/2015 12:05:28 Venereal disease screening 024044414 Z11.3 Vaginal culture was negative for gonorrhea, chlamydia, trichomona s, yeast, and BV, dwp. STD panel was also completely negative, dwp. [id number] Sho Longo (EDGING MACHINE CATCHER) [address] [place] [address] 12/10/2015 10:29:12 01/30/2016 09:12:24 Abdominal pain 01715740 R10.9 UA negative and exam normal. Pt. advised to use conservati ve measures and increase fluid intake. If not resolved in another 2 weeks, will refer to IM. [id number] Sho Longo (EDGING MACHINE CATCHER) [address] [place] [address] 02/26/2016 10:21:40 02/29/2016 16:07:05 Varicose veins of lower extremity 69045724 I83.819 Conservati ve treatments discussed. Option of sclerosis also discussed. Pt. will investigat e varicose vein treatment options. [id number] Asa Leonard PA-C [facility] [address] [place] [address] 02/29/2016 13:54:23 02/29/2016 15:42:07 Chlamydial infection 085899952 A74.9 Candidiasis 59532607 B37 .9 [id number] Sho Longo (EDGING MACHINE CATCHER) [address] [place] [address] 05/12/2016 10:07:02 05/13/2016 12:09:00 Carpal tunnel syndrome 76678536 G56.01 G56.02 Rx wrist splints given. Pt. to wear them at night. If no improvemen t in one week, will refer to a surgeon for release procedure, dwp. [id number] Sho Longo (EDGING MACHINE CATCHER) [address] [place] [address] 06/30/2016 11:06:27 07/02/2016 10:04:51 Dyspareunia 76848550 N94.10 Anatomy d/w pt. and . Advised changing sexual positions. No e/o infection d/wp pt. as well. [id number] JORDIN Babb (Adult Med) [address] [place] [address] 07/01/2016 12:12:57 07/01/2016 14:15:51 Active or passive immunization 968871131 Z23 Onychomycosis 114668880 B35.1 WIll initiate terbinafin e 150mg QD x 3 monthsRTC 3 months for f/u [id number] JORDIN Babb (Adult Med) [address] [place] [address] 08/21/2016 10:07:41 08/21/2016 17:51:58 Excessive sweating 96184137 R61 Will begin with basic labsWill initiate prescripti on strength deoderant [id number] JORDIN Babb (Adult Med) [address] [place] [address] 09/04/2016 11:12:18 09/04/2016 16:38:48 Excessive sweating 91756252 R61 Advised to use Drysol every 2-3 days depending upon how irritating it is - advised that using it daily was causing the irritation Advised to purchase non-scente d creams like Eucerin OTC for the dry skin RTC as needed [id number] JORDIN Babb (Adult Med) [address] [place] [address] 10/02/2016 09:25:56 10/02/2016 18:08:21 Abnormal thyroid hormone 470017866 R94.6 TSH: WNL, T4: low - will recheck today Onychomycosis 709048586 B35.1 WIll c/w terbinafin e 150mg QD x 3 months [id number] JORDIN Babb (Adult Med) [address] [place] [address] 11/12/2016 09:43:28 11/13/2016 12:27:16 Hypothyroidism 56303283 E03.9 Currently taking 50mcg - will recheck levels today and adjust accordingl y Discussed ensure she is exercising at least 3 minutes/da y 5 days/weekD iscussed the possibilit y of going to a gluten free and dairy free diet to help sx's - she states that she will ook into this [id number] Shoross Longo (EDGING MACHINE CATCHER) [address] [place] [address] 11/18/2016 10:33:56 11/20/2016 14:44:53 Venereal disease screening 664168617 Z11.3 RTO one week for results. Gynecologi c examination 20806005 Z01.419 Normal female exam. Last pap done 08/16/14 was negative with negative hr-HPV. Therefore, no pap needed. [id number] Sho Longo (EDGING MACHINE CATCHER) [address] [place] [address] 11/25/2016 15:13:52 11/26/2016 15:15:22 Venereal disease screening 901033986 Z11.3 Vaginal culture was negative for gonorrhea, chlamydia, and trichomona s, dwp. STD panel was also completely negative. Individual test results dwp. [id number] JORDIN Babb (Adult Med) [address] [place] [address] 02/24/2017 12:26:14 02/25/2017 12:26:44 Hypothyroidism 92997121 E03.9 Currently taking 50mcg - will recheck levels today and adjust accordingl y Discussed ensure she is exercising at least 3 minutes/da y 5 days/weekD iscussed the possibilit y of going to a gluten free and dairy free diet to help sx's - she states that she will look into this Excessive sweating 76024 005 R61 Advised to use Drysol every 2-3 days depending upon how irritating it is - advised that using it daily was causing the irritation Advised to purchase non-scente d creams like Eucerin OTC for the dry skin RTC as needed Verbal aud itory hallucinations 589926102 R44.0 Not currently presentAdv ised any SI/HI to go directly to the ERIf the voices return [facility] to schedule an appointmen t with Dr. Landaverde on her way out of the office today [id number] JORDIN Babb (Adult Med) [address] [place] [address] 04/07/2017 08:42:03 04/07/2017 12:28:36 Aphthous ulcer of mouth 938969056 K12.0 Will initiate triamcinol one oral past 3-4 times/Jose Alberto dvised to stay away from acidic foodContac t clinic if no improvemen t Excessive sweating 66711 005 R61 Advised to use Drysol every 2-3 days depending upon how irritating it is - advised that using it daily was causing the irritation Advised to purchase non-scente d creams like Eucerin OTC for the dry skin RTC as needed Hypothyroidism 78735537 E03.9 Currently taking 50mcgDiscu ssed ensure she is exercising at least 3 minutes/da y 5 days/weekD iscussed the possibilit y of going to a gluten free and dairy free diet to help sx's - she states that she will look into this Verbal aud itory hallucinations 666580044 R44.0 Not currently present - readdress todayAdvis ed any SI/HI to go directly to the ERIf the voices return advised to [facility] to schedule an appointmen t with Dr. Landaverde on her way out of the office today [id number] JORDIN Babb (Adult Med) [address] [place] [address] 06/18/2017 11:14:59 06/18/2017 11:56:20 Hypothyroidism 79010987 E03.9 Currently taking 50mcgDiscu ssed ensure she is exercising at least 3 minutes/da y 5 days/weekc /w current levothyrox ine 50mcg Excessive sweating 46246 005 R61 Advised to use Drysol every 2-3 days depending upon how irritating it is - advised that using it daily was causing the irritation Advised to purchase non-scente d creams like Eucerin OTC for the dry skin RTC as needed [id number] JORDIN Babb (Adult Med) [address] [place] [address] 08/26/2017 10:35:02 08/26/2017 13:15:25 Gynecologic examination 33744132 Z01.411 Hypothyroidism 19101603 E03.9 Currently taking 50mcgDiscu ssed ensure she is exercising at least 30 minutes/da y 5 days/weekW ill recheck at this time Venereal d isease screening 133441980 Z11.3 Excessive sweating 20449 005 R61 Advised to use Drysol every 2-3 days depending upon how irritating it is - advised that using it daily was causing the irritation Advised to purchase non-scente d creams like Eucerin OTC for the dry skin RTC as needed 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 [id number] JORDIN Babb (Adult Med) [address] [place] [address] 12/22/2017 10:22:58 12/23/2017 10:09:49 Hypothyroidism 00895106 E03.9 c/w levothyrox ine 50mcgDiscu ssed ensure she is exercising at least 30 minutes/da y 5 days/week Will recheck today Headache 44380176 R51 Patient has a lot of stress in her life at this time - likely 2/2 stressAdvi sed to try ibuprofen TID prophylact ically and not PRN Patient would like her thyroid checked as well RTC if no improvemen t [id number] JORDIN Babb (Adult Med) [address] [place] [address] 03/23/2018 11:09:51 03/24/2018 09:55:14 Administration of influenza vaccine 53635356 Z23 Hypothyroidism 58332625 E03.9 c/w levothyrox ine 50mcgDiscu ssed ensure she is exercising at least 30 minutes/da y 5 days/week Will recheck today Paresthesia 54926379 R20 .2 bilateral hands - likely carpal tunnel Excessive sweating 72811 005 R61 Advised to use Drysol every 2-3 days depending upon how irritating it is - advised that using it daily was causing the irritation Advised to purchase non-scente d creams like Eucerin OTC for the dry skin RTC as needed Carpal fan ananya syndrome 78610216 G56.03 Discussed with patient that if she can obtain insurance we can order a nerve conduction study and then refer her to a hand surgeon, but at this time there is nothing that we can do until she has insuranceA dvised to wear the braces as much as possible, take ibuprofen PRN [id number] CORNELL Peguero (Adult Med) [address] [place] [address] 08/27/2018 10:18:55 08/27/2018 13:39:03 Excessive sweating 00998698 R61 medication keeping sweat under control. 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 Will sent culture. Vaginal exam also normal. Vaginal culture sent. Possible IC d/w pt. IC diet given. Pt. to see if it helps. [id number] Thomas Amin [facility] [address] [place] [address] 08/30/2019 11:39:38 08/30/2019 15:20:01 Hypothyroidism 34031063 E03.9 last tests 07/2018 wnlcontinu e synthroid 50mcg daily Excessive sweating 75368 005 R61 continue Drysol Constipation 39823987 K5 9.00 increase fiber, fruits, veggies etc., may try Fiber one prn Increase daily water intake Depression screening 171 741683 Z13.31 negative [id number] MD Abdifatah Dashn 14 IM [address] [facility] [address] [place] [address] 10/12/2019 08:38:47 10/13/2019 09:36:51 Fracture of one rib 56130093 S22.32XA L/anterola teral on 09/25/19 s/p fall on stairs. Feeling better now. If prefer use localised lidocaine patch if uncomforta ble. [id number] [facility] [address] [place] [address] 11/25/2019 11:01:08 11/28/2019 07:18:30 Hypothyroidism 77682611 E03.9 last tests 07/2018 wnlcontinu e synthroid 50mcg dailypatie nt has refills till 08/19 Excessive sweating 61924 005 R61 continue Drysol Constipation 77422169 K5 9.00 increase fiber, fruits, veggies etc., may try Fiber one prn Increase daily water intake [id number] Thomas Amin [facility] [address] [place] [address] 01/31/2020 10:01:53 02/01/2020 07:34:03 Acute sinusitis 53168410 J01.90 [id number] Ninoska Grossman [facility] [address] [place] [address] 02/02/2020 11:30:52 02/03/2020 08:45:33 Hypothyroidism 64546889 E03.9 [id number] DENNIS GAMA (EDGING MACHINE CATCHER) [address] [place] [address] 04/13/2020 12:08:28 04/18/2020 10:25:08 Pain in pelvis 54246179 R10.2 Patient is a 35yo female with a PMHx of hypothyroi dism and tubal ligation presenting with lower abdominal pain and bloating that has been present for a few years but has worsened x1 month. Described as bloating with nausea, with intermitte nt stabbing. +dyspareun ia. Menses regular, no abnormal bleeding. Pap UTD, negative findings. UA wnl. PE with diffuse lower quadrant tenderness . Possibly IC vs fibroids vs adhesions. -Educated patient to continue warm baths/warm compress to help with symptoms.- transabdom inal, pelvic and transvagin al US ordered, advised to schedule-H pylori and STD testing as below Abdominal pain 57745264 R10.9 Lower abdominal/ pelvic pain but pt reports persistent inflammat ion and that she feels . Suspect pt experienci ng bloating. Will rule out H pylori. Discussed GERD diet. [id number] MARIE LIRIANO NP [facility] [address] [place] [address] 05/28/2020 11:04:03 05/29/2020 08:11:03 Hypothyroidism 30605275 E03.9 last tests 01/2020 wnlcontinu e synthroid 50mcg dailywill recheck labs in 08/19 Constipation 83581740 K5 9.00 increase fiber, fruits, veggies etc., may try Fiber one prn Increase daily water intake [id number] DENNIS GAMA (EDGING MACHINE CATCHER) [address] [place] [address] 06/27/2020 12:45:11 06/28/2020 14:04:59 Menorrhagia 855761434 N92.0 HMB lasting about 10 days. Patient complains of increased dizziness. Will check anemia labs. Pt declines contracept rohini at this time. Irritable bowel syndrome 16072617 K58.9 Chronic lower abdominal pain associated with nausea, vomiting, bloating, and constipati on. H pylori negative. Suspect IBS, less likely IBD. F/u CRP. Trial of dicyclomin e. Advised to follow up with PCP. Nausea and vomiting 1693 1999 R11.2 Decreased appetite due to increased nausea with several episodes of emesis. Trial PPI. GERD diet discussed. Gynecologi c examination 97002542 Z01.419 Endometrium thickened 44 5926615 R93.89 US from 04/30/20 showed thickened midline endometria l echo at 1.8 cm otherwise normal. EMB performed today. Pt tolerated well, see procedure note for more details. [id number] [facility] [address] [place] [address] 07/13/2020 12:09:53 07/18/2020 14:11:03 Abdominal bloating 491234289 R14.0 Lower abdominal/ pelvic pain but pt reports persistent inflammat ion and that she feels . Suspect pt experienci ng bloating. H pylori negative. Discussed GERD diet/gas producing foods.Disk Sharpener gary lower abdominal pain associated with nausea, vomiting, bloating, and constipati on. H pylori negative. Suspect IBS. She was given a Trial of dicyclomin e. and Omeprazole Still having symptoms-p atient voices her abdominal pain has been present FOREVER Abdominal pain 76786210 R10.9 Lower abdominal/ pelvic pain but pt reports persistent inflammat ion and that she feels . Suspect pt experienci ng bloating. H pylori negative. Discussed GERD diet. Discussed bloating causing foods broccoli, cabbage, beans, milk, spicy foods etc Irritable bowel syndrome 16458946 K58.9 irritable bowel syndrome Chronic lower abdominal pain associated with nausea, vomiting, bloating, and constipati on. H pylori negative. Suspect IBS, less likely IBD. F/u CRP. Trial of dicyclomin e. Chronic constipation 236 754598 K59.09 Patient has frequent hard BM/Constip ationIncre ase water and fiber in your diet [id number] Thomas Amin, [facility] [address] [place] [address] 08/17/2020 11:19:54 08/20/2020 13:58:03 Chronic constipation 032291268 K59.09 Patient has frequent hard BM/Constip ationIncre ase water and fiber in your diet Irritable bowel syndrome 49081678 K58.9 irritable bowel syndrome Chronic lower abdominal pain associated with nausea, vomiting, bloating, and constipati on. H pylori negative. Suspect IBS, less likely IBD. F/u CRP. Trial of dicyclomin e. Hypothyroidism 96978258 E03.9 Abdominal bloating 54961 9008 R14.0 Lower abdominal/ pelvic pain but pt reports persistent inflammat ion and that she feels . Suspect pt experienci ng bloating. H pylori negative. Discussed GERD diet/gas producing foods.Disk Sharpener gary lower abdominal pain associated with nausea, vomiting, bloating, and constipati on. H pylori negative. Suspect IBS. She was given a Trial of dicyclomin e. and Omeprazole Still having symptoms-p atient voices her abdominal pain has been present FOREVER Abdominal pain 95098204 R10.9 Lower abdominal/ pelvic pain but pt reports persistent inflammat ion and that she feels . Suspect pt experienci ng bloating. H pylori negative. Discussed GERD diet. Discussed bloating causing foods broccoli, cabbage, beans, milk, spicy foods etc Hyperlipid emia screening 203030913 Z13.220 Body mass index 25-29 - overweight 460599294 Z68.[id number] [facility] [address] [place] [address] 08/24/2020 10:02:28 08/27/2020 19:10:55 Hyperlipidemia screening 355201069 Z13.220 Hypothyroidism 10251772 E03.9 [id number] Thomas Amin [facility] [address] [place] [address] 11/08/2020 12:08:19 11/09/2020 16:47:05 Hypothyroidism 13332083 E03.9 08/24/2020 TSH 1.150 normal continue synthroid 50mcg daily patient has refills till 10/2020 Excessive sweating 69043 005 R61 continue Drysol Chronic constipation 236 686387 K59.09 Better Patient has frequent hard BM/Constip ation Increase water and fiber in your diet Irritable bowel syndrome 89485531 K58.9 irritable bowel syndrome Chronic lower abdominal pain associated with nausea, vomiting, bloating, and constipati on. H pylori negative. Suspect IBS, less likely IBD. F/u CRP. Trial of dicyclomin e. Abdominal bloating 68601 9008 R14.0 Better Lower abdominal/ pelvic pain but pt reports persistent inflammat ion and that she feels . Suspect pt experienci ng bloating. H pylori negative. Discussed GERD diet/gas producing foods. Chronic lower abdominal pain associated with nausea, vomiting, bloating, and constipati on. H pylori negative. Suspect IBS. She was given a Trial of dicyclomin e. and Omeprazole Still having symptoms-p atient voices her abdominal pain has been present FOREVER [id number] Thomas Amin [facility] [address] [place] [address] 01/21/2021 14:42:42 01/22/2021 10:43:21 Otitis externa 9250278 H60.91 [id number] DENNIS GAMA (EDGING MACHINE CATCHER) [address] [place] [address] 01/30/2021 11:42:03 02/07/2021 08:51:12 Reduced libido 2631941 R68.82 Has tried marriage counseling , date nights, and different techniques . Discussed other ways to increase libido, care instructio ns provided. Contracept ion care management 474130295 Z30.9 Discussed starting hormones to try to regulate them/incre ase sex drive. She would like to try OCPs. Counseled on use and side effects. Follow up labs. RTC in 4 months for Pap. [id number] Thomas Amin [facility] [address] [place] [address] 02/18/2021 11:13:37 02/19/2021 12:21:55 Hypothyroidism 73883270 E03.9 08/24/2020 TSH 1.150 normal continue synthroid 50mcg daily patient has refills till 10/2020 Excessive sweating 23776 005 R61 continue Drysol Chronic constipation 236 834904 K59.09 Better Patient has frequent hard BM/Constip ation Increase water and fiber in your diet Irritable bowel syndrome 65023975 K58.9 irritable bowel syndrome Chronic lower abdominal pain associated with nausea, vomiting, bloating, and constipati on. H pylori negative. Suspect IBS, less likely IBD. F/u CRP. Trial of dicyclomin e. Abdominal bloating 06889 9008 R14.0 Better Lower abdominal/ pelvic pain but pt reports persistent inflammat ion and that she feels . Suspect pt experienci ng bloating. H pylori negative. Discussed GERD diet/gas producing foods. Chronic lower abdominal pain associated with nausea, vomiting, bloating, and constipati on. H pylori negative. Suspect IBS. She was given a Trial of dicyclomin e. and Omeprazole Still having symptoms-p atient voices her abdominal pain has been present FOREVER [id number] [facility] [address] [place] [address] 04/29/2021 11:16:13 04/30/2021 06:36:34 Carpal tunnel syndrome 94180163 G56.03 Has had symptoms for 6 yearsstart ed during pregnancyi mproved after pregnancyb ut lately symptom worseshe is dropping thingsR>LS he using wrist splintshas never had NCSRates pain 9/10Motrin 400mg doesnt help Administra tion of influenza vaccine 92731413 Z23 [id number] [facility] [address] [place] [address] 07/01/2021 12:26:49 07/02/2021 18:48:39 Carpal tunnel syndrome 69118271 G56.03 Has had symptoms for 6 yearsstart ed during pregnancyi mproved after pregnancyb ut lately symptom worseshe is dropping thingsR>LS he using wrist splintshas never had NCSRates pain 9/10Motrin 400mg doesnt help Hypothyroidism 07321522 E03.9 08/24/2020 TSH 1.150 normal continue synthroid 50mcg daily patient has refills till 06/2021 [id number] DENNIS GAMA (EDGING MACHINE CATCHER) [address] [place] [address] 09/05/2021 10:40:35 09/16/2021 16:47:47 Gynecologic examination [id number] Z01.419 Cervical cancer screening: NILM and HPV + in 2020, Pap updated in clinic today.Maribel cartagena cancer screening: Reviewed recommenda tions for initiation at age 40 with annual screening. Discussed SBEColonos copy: n/aSTI screening: Pt declined Nuswab, PE unremarkab leContrace ption: s/p BTLDiet/ex ercise: Counseled regarding importance of physical activity, healthy diet and appropriat e calcium intake.RTC in 1yr [id number] [facility] [address] [address] 4 09/25/2021 11:01:31 09/26/2021 11:47:35 Carpal tunnel syndrome [id number] G56.03 Has had symptoms for 6 yearsstart ed during pregnancyi mproved after pregnancyb ut lately symptom worseshe is dropping thingsR>LS he using wrist splintshas never had NCSRates pain 02/08Had steroid injection by hand surgeon on helped 80%Patient doesnt want to take Gabapentin Patient will try RX NSAID for prn use-[facility] Gastroesop hageal reflux disease 734935749 K21.9 Irritable bowel syndrome 96564805 K58.9 irritable bowel syndrome Chronic lower abdominal pain associated with nausea, vomiting, bloating, and constipati on. H pylori negative. Suspect IBS, less likely IBD. F/u CRP. Trial of dicyclomin e. Chronic constipation 236 395824 K59.09 Better Patient has frequent hard BM/Constip ation Increase water and fiber in your diet Body mass index 25-29 - overweight 464383727 Z68.26 BMI 25 Depression screening 171 916133 Z13.31 negative [id number] [facility] [address] 4 12/26/2021 10:52:24 12/30/2021 13:05:27 Gastroesophageal reflux disease 940441511 K21.9 Hypothyroidism 79652797 E03.9 08/24/2020 TSH 1.150 normal continue synthroid 50mcg daily patient has refills till 06/2022 Carpal fan ananya syndrome 01357780 G56.03 Has had symptoms for 6 yearsstart ed during pregnancyi mproved after pregnancyb ut lately symptom worseshe is dropping thingsR>LS he using wrist splintshas never had NCSRates pain 02/08Had steroid injection by hand surgeon on helped 80%Patient doesnt want to take Gabapentin Patient takes RX NSAID for prn use-RX sent to [facility] Irritable bowel syndrome 23355444 K58.9 irritable bowel syndrome Chronic lower abdominal pain associated with nausea, vomiting, bloating, and constipati on. H pylori negative. Suspect IBS, less likely IBD. F/u CRP. Trial of dicyclomin e. Chronic constipation 236 026590 K59.09 Better Patient has frequent hard BM/Constip ation Increase water and fiber in your diet Body mass index 25-29 - overweight 090210514 Z68.26 BMI 25 Depression screening 171 727428 Z13.31 negative [id number] Samy Stafford MD [facility] [address] [place] [address] 03/20/2022 12:13:40 03/21/2022 11:27:26 Follow-up visit [id number] Z09 37 y/o HF presents for follow up er visits on 02/17/2022 and 02/26/2022 for RUQ abdominal pain. The patient had been having n/v, RUQ abd pain, fatigue which were not resolving. with a 2 week history of worsening RUQ pain. This pain was throbbing, 8/10 with radiation to her back. She has tried tylenol and motrin with no relief. The pain is better when she is moving and worse when she is still. Also notes worse when taking deep breath in. She reports this pain awakens her from sleep. She also states the pain is not affected by food. Last bowel movement was this morning and denied blood or pale stools. Reports 7lb weight loss over 3 weeks and poor appetite; denies night sweats.Florentin n was preceded by 2 weeks of nausea, dizziness, fatigue, chills and cold intoleranc e. Her reported subjective fever at home but the patient had not taken her temperatur e. She reports she is now persistent ly cold and fatigued. Pt has a hx of hypothyroi dism and reports no issues with compliance taking her levothyrox ine. She had one episode of vomiting of only water. SHe had multiple testing done at [facility] ER which return positive for CMV and Epstain Bar with a slightly elevated AFP which the patient was told it could be cancer. However, the patient was instructed to see GI for further workup to include an MRI of liver, colonoscop y, EGD which have all returned wnl. The liver does show a Hemangioma . She is to have repeat liver MRI in 1 year and repeat AFP lab in 3-6 months. She was given prescripti on for nortriptil line 10mg at hs which the patient did not start taking as she read it was for depression and she voices i am not depressed . I have advised her that it is used off label for pain and i would recommend she give medication a try. Lesion of liver 07242133 0 K76.9 Had follow up with GI as instructed All test normalNo suspicious lesionspat ient has a hemangioma of liver-seen as far back as 2011to have repeat MRI in 1 yearRepeat AFP in 3-6 months.Pat ient was supposed to start Nortriptyl ine 10mg daily-but once patient saw it was for depression /anxiety she refused to take it Hypothyroidism 04114498 E03.9 recently increased to Levothyrox ine 75mcg on 02/26/2022 Depression screening 171 261615 Z13.31 PHQ2-9 negative Mental hea lt screening 940555753 Z13.39 GAMA-7 negative Body mass index 20-24 - normal 380591776 Z68.24 BMI 24.5Ht 5' Healthy weight range 90-125 Excessive sweating 76416 005 R61 continue Drysol [id number] Thomas Amin [facility] [address] [place] [address] 06/25/2022 11:23:02 06/26/2022 08:33:25 Hypothyroidism 85253604 E03.9 continue Levothyrox ine 75mcg Body mass index 25-29 - overweight 950655399 Z68.26 BMI 25 Irritable bowel syndrome 87723295 K58.9 irritable bowel syndrome Chronic lower abdominal pain associated with nausea, vomiting, bloating, and constipati on. H pylori negative. Suspect IBS, less likely IBD. F/u CRP. Trial of dicyclomin e. 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 Has had symptoms for 6 yearsstart ed during pregnancyi mproved after pregnancyb ut lately symptom worseshe is dropping thingsR>LS he using wrist splintshad NCSHad steroid injection by hand surgeon on helped 80%Patient doesnt want to take Gabapentin Patient takes RX NSAID for prn use-advise d to stop NSAIDS for now as she continues to have RUQ abd pain that wakes her up from sleep Chronic constipation 236 490389 K59.09 Better Patient has frequent hard BM/Constip ation Increase water and fiber in your diet Depression screening 171 514314 Z13.31 negative Excessive sweating 59340 005 R61 continue Drysol Lesion of liver 17336351 0 K76.9 Had follow up with GI as instructed All test normalNo suspicious lesionspat ient has a hemangioma of liver-seen as far back as 2011to have repeat MRI in 1 yearRepeat AFP in 3-6 months.Pat ient started Nortriptyl ine 10mg daily-afte r appt here but voices does help with RUQ abd pain which continues to persist Mental hea lth screening 753175485 Z13.39 GAMA-7 negative Right uppe r quadrant pain 732387646 R10.11 RUQ. 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 chronic seen dentistc/o frequent outbreaksh as had since a childpainf uldenies lip/oral mucosa bitingsalt water gurgles Venous varices 723767262 I83.91 Had ablation 8 years agoR inner thigh/calf area painfulcan t tolerate compressio n hosewants to see vascular/v ein specialist Body mass index 20-24 - normal 467406652 Z68.24 BMI 23.8Ht 5' Healthy weight range 90-125 Depression screening 171 135195 Z13.31 negative Mental hea lth screening 517378978 Z13.39 GAMA-7 negative [id number] [facility] [address] [place] [address] 10/22/2022 10:39:29 10/24/2022 16:03:35 Hypothyroidism 59679448 E03.9 continue Levothyrox ine 75mcg Irritable bowel syndrome 65078025 K58.9 irritable bowel syndrome Chronic lower abdominal pain associated with nausea, vomiting, bloating, and constipati on. H pylori negative. Suspect IBS, less likely IBD. F/u CRP. Trial of dicyclomin e. 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 Patient complains of increased dizziness, nausea, leg pain, abdominal bloating 2 weeks before menstrual cycles.-Wi ll repeat anemia labs-Previ ous EMBx 2020 negative-F ollow up TVUS-Start ed on norethindr one [id number] Thomas Amin [facility] [address] [place] [address] 04/14/2023 10:06:53 04/15/2023 13:04:01 Hypothyroidism 01305617 E03.9 continue Levothyrox ine 75mcg Irritable bowel syndrome 79559760 K58.9 irritable bowel syndrome Chronic lower abdominal pain associated with nausea, vomiting, bloating, and constipati on. H pylori negative. Suspect IBS, less likely IBD. F/u CRP. Has Tried of dicyclomin e. Gastroesop hageal reflux disease 979274199 K21.9 Chronic constipation 236 178109 K59.09 Better Patient has frequent hard BM/Constip ation Increase water and fiber in your diet Herpes simplex 10832210 B00.9 HSV1+Has RX for episodic care prn Excessive sweating 17186 005 R61 continue Drysol Depression screening 171 575987 Z13.31 negative Mental hea lth screening 202574066 Z13.39 GAMA-7 negative Administra tion of influenza vaccine 06370177 Z23 Carpal fan ananya syndrome 76731329 G56.03 Has had symptoms for 6 yearsstart ed during pregnancyi mproved after pregnancyb ut lately symptom worseshe is dropping thingsR>LS he using wrist splintshad NCSHad steroid injection by hand surgeon on helped 80%Patient doesnt want to take Gabapentin Patient takes RX NSAID for prn use- [id number] JUAN ANTONIO Hernandes-[facility] [address] [facility] [address] [place] [address] 07/21/2023 13:55:22 07/22/2023 09:29:37 Gynecologic examination 29949883 Z01.419 1. Counseled regarding prevention of STD's , condom use and prevention . 2. Counseled regarding contracept pedro luis options, risk factors and side effects. 3. Advised avoidance of tobacco, alcohol, and drugs . 4. Counseled regarding folic acid supplement ation, calcium needs and prevention of osteoporos is . 5. BSE reviewed and recommende d. 6. Follow up in one year or sooner if needed. Pain in pelvis 44209982 R10.2 Will order pelvic ultrasound . Pt advised on treatment options for ovarian cysts and fibroids including but not limited to control use. Pt educated on other causes of pelvic pain included but not limited to constipati on or bladder issues. Pt verbalized understand ing. Will follow up pending results. Positive s creening for depression on PHQ-9 (Patient Health Questionnaire 9) 8624576377 19223 Z13.31 Denies thoughts of self harm or harming others. Pt instructed to call 911 if depression worsens or go to ED. [id number] Thomas Amin [facility] [address] [place] [address] 07/29/2023 13:39:54 07/31/2023 16:17:25 Acute pharyngitis 024374158 J02.9 continue naproxen for pain Acute ethm oidal sinusitis 63747922 J01.20 [id number] Sudha Peña [facility] 14 OB 4 [facility] [address] [place] [address] 09/04/2023 11:07:36 09/07/2023 11:39:06 Endometrium thickened 702529915 R93.89 EMB perfomed without issue. Pt educated on risks/bene fits/side effects from EMB and reason for doing procedure. Pt verbalized understand ing. Pt understand s nothing in vagina for 7 days and to call office if green discharge, pain, fever develop. Will follow up pending test results. Overweight 427228924 E66 .3 Discussed diet and weight loss. Discussed making healthier food choices and increasing exercise. Discussed going to a pain management nurse practitioner. Chronic pe lvic pain of female 786350583 R10.2 Pt advised on treatment options for ovarian cysts and fibroids including but not limited to control use. Pt educated on other causes of pelvic pain included but not limited to constipati on or bladder issues. Will refer to mobile lounge driver surgery. Nausea 276893171 R11.0 Will send out meds for nausea. Pt advised to eat small meals, every 2-3 hours, avoid fatty foods and keep hydrated. Pt verbalized understand ing. [id number] Thomas Amin [facility] [address] [place] [address] 10/13/2023 10:58:49 10/21/2023 12:00:16 Body mass index 25-29 - overweight 890509578 Z68.26 BMI 26.6 Hypothyroidism 32474431 E03.9 continue Levothyrox ine 75mcg Irritable bowel syndrome 83891115 K58.9 irritable bowel syndrome Chronic lower abdominal pain associated with nausea, vomiting, bloating, and constipati on. H pylori negative. Suspect IBS, less likely IBD. F/u CRP. Has Tried of dicyclomin e. Gastroesop hageal reflux disease 188348165 K21.9 Chronic constipation 236 328531 K59.09 Better Patient has frequent hard BM/Constip ation Increase water and fiber in your diet Obesity 462065332 E66.9 Herpes simplex 37484648 B00.9 HSV1+Has RX for episodic care prn Excessive sweating 22933 005 R61 continue Drysol Depression screening 171 444810 Z13.31 negative Mental hea lth screening 334492718 Z13.39 GAMA-7 negative Carpal fan ananya syndrome 19371270 G56.03 Has had symptoms for 6 yearsstart ed during pregnancyi mproved after pregnancyb ut lately symptom worseshe is dropping thingsR>LS he using wrist splintshad NCSHad steroid injection by hand surgeon on helped 80%Patient doesnt want to take Gabapentin Patient takes RX NSAID for prn use- [id number] Thomas Amin, [employer]ING GATE [employer]IVER-[facility] [address] [place] [address] 02/09/2024 12:20:54 02/17/2024 08:47:23 Follow-up visit 946265683 Z09 39 y/o HF presents for follow up ER visits and hospitaliz ation last month. The patient was initially seen for breaking out in a bad rash on arms, palms and thighs. She was given antivirals and diagnosed with erythema multiforme . Rash now cleared.Th e patient returned to ER as she developed a severe headache that was not controlled with any meds. She had multiple testing all normal and was seen by neurologis t while in the hospital. She was put on topiramate 25mg bid which she feels has not completely resolved the headaches. She went to 3 hospitals with headache and nausea and no one could give her a diagnosis as to why her headaches. SHe voices her concern is her headache is not well controlled . She is in agreement to try a triptan for breakthrou gh headaches and continue topiramate at higher dose of 50mg bid Erythema multiforme 3671 5001 L51.9 rash has clearedhas appointmen t with derm for dv ised to keep appointmen t Migrainous vertigo 00673 4007 H81.8X9 intractabl e migrainein creased topamax 25mg bid to 50mg bid (has at home)will give Rx for breakthrou gh headachesc ontinues to have symptoms 5/10 at worst 10 last bad episode 01/26/2024 for which she went to ER [id number] JUAN ANTONIO Garcia-[facility] [address] [place] [address] 03/14/2024 11:10:43 03/15/2024 11:52:58 Body mass index 25-29 - overweight 520483427 Z68.26 BMI 26.1 Chronic constipation 236 013927 K59.09 Better Patient has frequent hard BM/Constip ation Increase water and fiber in your diet Hypothyroidism 64924207 E03.9 continue Levothyrox ine 75mcg Gastroesop hageal reflux disease 004219472 K21.9 Overweight 137862491 E66 .3 BMI 26.1 Irritable bowel syndrome 72815218 K58.9 irritable bowel syndrome Chronic lower abdominal pain associated with nausea, vomiting, bloating, and constipati on. H pylori negative. Suspect IBS, less likely IBD. F/u CRP. Has Tried of dicyclomin e. Herpes simplex 09098803 B00.9 HSV1+Has RX for episodic care prn Excessive sweating 15264 005 R61 continue Drysol Carpal fan ananya syndrome 20516875 G56.03 Has had symptoms for 6 yearsstart ed during pregnancyi mproved after pregnancyb ut lately symptom worseshe is dropping thingsR>LS he using wrist splintshad NCSHad steroid injection by hand surgeon on helped 80%Patient doesnt want to take Gabapentin Patient takes RX NSAID for prn use- Migrainous vertigo 18264 4007 H81.8X9 intractabl e migrainein creased topamax 25mg bid to 50mg bid (has at home)will give Rx for breakthrou gh headachesc ontinues to have symptoms 5/10 at worst 10 last bad episode 01/26/2024 for which she went to ERreferred to neurologis t on 02/09/2024 Administra tion of influenza vaccine 51430794 Z23 Dyslipidemia 955420101 E 78.5 [id number] Josie Leal, [facility] [address] [place] [address] 03/21/2024 10:31:08 03/25/2024 16:13:11 Dyslipidemia 689275554 E78.5 Health Concerns Section Related Observation LastModified by Organization Detai ls LastModified Time None Recorded Concern Status LastModified by Organization Details LastModified Time None Recorded Advance Directives Directive N: Payers Encounter Date Sequence Insurance Name Policy Number Policy Zuleta Covered Member ID Zuleta Member ID Guarantor Name 09/04/2023 1 *SELF PAY* Be atriz Burgos 10/13/2023 1 *SELF PAY* Be atriz Burgos 02/09/2024 1 *SELF PAY* Be atriz Burgos 03/14/2024 1 *SELF PAY* Be atriz Burgos 03/21/2024 1 *SELF PAY* Be atriz Burgos Notes Date Note Type Note Provider Name and Address Organization Details Recorded Time 4 text/htm l Annual GYNReported bypatient.Menstrual cycle:Severe dysmenorrhea Urinary symptoms:No hematuria; No incontinence Vulva:No genital lesion Vagina:White Breast:No breast pain; No breast lump; No nipple discharge Sexual complaints:No sexual complaints; No pain during intercourse; Normal libido Menopausal Symptoms:No menopausal symptoms; Normal vaginal lubrication Psychological symptoms:No depression; No anxiety; No PMDD Preventive measures:Encourage self breast examination; Encourage regular exercise; Encourage no tobacco use; Encourage regular mammograms starting age [age] y/o Fe here for emb- hx obesity, hsv2, hypothyroidism, ibs, lesion of liver, constipation, gerd, tubal ligation, bilateral breast implants- complaint of constant pelvic pain since early june, had episodes last year but was unable to complete pelvic ultrasound- results showed thickened endometrium- will help sign up for ibccp for mammogram- last pap wnl 07/21/23- abnormal pap 06/27/20 hpv pos JUAN ANTONIO Hernandes-BC Attn: Accounting,[address] [facility], [place], [address], [facility] 09/04/2023 15:20:58 4 text/htm l 38 y/o HF presents for refill meds.Needs refill Linzess for chronic constipationOccasionally has heartburn no blood per os or rectum needs Rx omeprazole for occasional use and will start famotidine for milder symptoms.She is requesting Bentyl 10mg for prn use as sometimes does get abdominal bloating and Bentyl helps.She had colonoscopy and EGD on 03/11/2022, MRI of liver on 03/05/22.She is requesting a refill of drysol for excessive sweating. Pt has a hx of hypothyroidism and reports no issues with compliance taking her levothyroxine. JUAN ANTONIO Garcia-SHAUNA Attn: Accounting,[address] [place], [address], [facility] 10/15/2023 14:13:03 4 text/htm l ConstipationReported bypatient.Quality:improving Duration:lifelong Contextno recent opiates; no recent surgery; no stress; no anemia; normal toileting ability; no history of IBS; no history of chronic idiopathic constipation; no history of Hirschsprung's; no family history of colon polyps or cancer; no history of colonoscopy; no history of Diverticulosis; no abnormal imaging Alleviating Factors:having bowel movement; Linzess Associated Symptoms:no excess gas; no fever; no rash; no joint pain; no weight loss; no nausea; no vomiting; no blood in stool; no mucus in stool; no black or tarry stools; no weakness; no nutrient deficiency; no fecal incontinence;heartburnThyroi dReported bypatient.Severity:moderate Onset/Timing:better Context:normal thyroid levels; no history of head or neck radiation during childhood; no history of thyroid disease; no history of hypothyroidism; no history of hyperthyroidism; no excess iron exposure; history of thyroid nodules no; family history of thyroid disease no; history of goiter no Modifying Factors:medication Exercisegets exercise Associated Symptoms:no cold intolerance; no heat intolerance; no weight loss; no weight gain; no double vision; no dry eyes; no hoarseness; no difficulty swallowing; no neck masses; no deepening of the voice; no fast heart rate; no increased blood pressure; no palpitations; no chest pain; no chest tightess or pressure; no constipation; no diarrhea; no vomiting; no decreased appetite; no loose stools; no irregular menstrual periods; no joint pain; no numbness; no tingling of the hands or feet; no tremor; no nervousness; no depression; no fatigue; no sleep difficulties; no skin changes; no hair changes;excessive sweating;dry skin;anxiety JANUARY Garcia Attn: Accounting,[address] [place], [address], [facility] 10/15/2023 14:13:03 4 text/htm l 39 y/o HF presents for follow up ER visits and hospitalization last month. The patient was initially seen for breaking out in a bad rash on arms, palms and thighs. She was given antivirals and diagnosed with erythema multiforme. Rash now cleared.The patient returned to ER as she developed a severe headache that was not controlled with any meds. She had multiple testing all normal and was seen by neurologist while in the hospital. She was put on topiramate 25mg bid which she feels has not completely resolved the headaches. She went to 3 hospitals with headache and nausea and no one could give her a diagnosis as to why her headaches. SHe voices her concern is her headache is not well controlled. She is in agreement to try a triptan for breakthrough headaches and continue topiramate at higher dose of 50mg bid JANUARY Garcia Attn: Accounting,[address] [place], [address], [facility] 02/15/2024 18:00:12 4 text/htm l ConstipationReported bypatient.Quality:improving Duration:lifelong Contextno recent opiates; no recent surgery; no stress; no anemia; normal toileting ability; no history of IBS; no history of chronic idiopathic constipation; no history of Hirschsprung's; no family history of colon polyps or cancer; no history of colonoscopy; no history of Diverticulosis; no abnormal imaging Alleviating Factors:having bowel movement; Linzess Associated Symptoms:no excess gas; no fever; no rash; no joint pain; no weight loss; no nausea; no vomiting; no blood in stool; no mucus in stool; no black or tarry stools; no weakness; no nutrient deficiency; no fecal incontinence;heartburnHeadac heReported bypatient.Quality:not the worst headache ever; similar to previous headaches Onset/Timing:better Context:not related to trauma Associated Symptoms:no vomiting; no sensitivity to light; tearing/watery eyes; no confusion; no slurred speech; no preceeding aura; no double vision; normal feeling/sensation; no motor paralysis; no dizziness; no sleep disturbances; no nosebleeds; no hoarseness; no sore throat; no hearing lossReflux/GERDReported bypatient.SymptomsAsymptomat ic; no difficulty swallowing; no pain swallowing; no postprandial pain Severity:improving Context:non-smoker; no drug/alcohol abuse; no drug alcohol withdrawal; not related to food/drink Associated Symptoms:no frequent coughing; no feeling of fullness/mass in throat; no hoarseness; no food getting stuck; no belching/burping; no nausea; no vomiting; not vomiting blood; no regurgitation; no shortness of breath; no chest pain; no heartburn; no difficulty swallowing; no pain when swallowing; no bad taste; no decreased appetite; no weight loss; no black/tarry stools; no fatigue; no throat painThyroidReported bypatient.Severity:moderate Onset/Timing:better Context:normal thyroid levels; no history of head or neck radiation during childhood; no history of thyroid disease; no history of hypothyroidism; no history of hyperthyroidism; no excess iron exposure; history of thyroid nodules no; family history of thyroid disease no; history of goiter no Modifying Factors:medication Exercisegets exercise Associated Symptoms:no cold intolerance; no heat intolerance; no weight loss; no weight gain; no double vision; no dry eyes; no hoarseness; no difficulty swallowing; no neck masses; no deepening of the voice; no fast heart rate; no increased blood pressure; no palpitations; no chest pain; no chest tightess or pressure; no constipation; no diarrhea; no vomiting; no decreased appetite; no loose stools; no irregular menstrual periods; no joint pain; no numbness; no tingling of the hands or feet; no tremor; no nervousness; no depression; no fatigue; no sleep difficulties; no skin changes; no hair changes;excessive sweating;dry skin;anxiety 39 y/o HF presents for refill meds.Needs refill Linzess for chronic constipationOccasionally has heartburn no blood per os or rectum needs Rx omeprazole for occasional use andwill continue famotidine for milder symptoms.She had colonoscopy and EGD on 03/11/2022, MRI of liver on 03/05/22.She is requesting a refill of drysol for excessive sweating. Pt has a hx of hypothyroidism and reports no issues with compliance taking her levothyroxine.She has not had any other headaches since last visit. She has appointment with neurology in Apr 2024.Patient wants influenza vaccine. She has no contraindications. JUAN ANTONIO Garcia-SHAUNA Attn: Accounting,[address] [place], [address], [facility] 03/14/2024 17:06:06 OBGyn Episode Ob Episode Information Episode Created Date Number of Fetuses Patient Bloodtype Patient rh Status Prepregnancy Weight lbs Domestic Partner Domestic Partner Phone Father Name Special Machine Stitcher Status 05/19/20 14 1 DELETED Arnol Calculation Initial Arnol Date Initial Exam Date Initial Exam Provider Initial Ultrasound Date Last Menstrual Period Date Ultra Sound Weeks Gestation 0 Eighteen To Twenty Week Arnol Update Ultra Sound Date Fundal Height At Umbil Quickening Date Ultra Sound Latest Weeks Gestation Final Arnol Confirmed By Final Arnol Confirmed Date Final Arnol Date Ultra Sound Latest Days Gestation 0 0 Menstrual History Last Menstrual Date Menses Monthly On Bcp Conception Prior Menses Frequency Hcg Plus Date Menarche Onset Age Delivery Information Delivery Date Delivery Type Labor Anesthesia Weeks Gestation Incision Type Labor Labor Length Hrs Delivered By Post Complications Tubal Sterilization Discharge Date Comments 7 Discharge Information Feeding Method Contraceptive Method Maternal HG B and HCT Levels Ob Episode Information Episode Created Date Number of Fetuses Patient Bloodtype Patient rh Status Prepregnancy Weight lbs Domestic Partner Domestic Partner Phone Father Name Special Machine Stitcher Status 05/19/20 14 1 DELETED Arnol Calculation Initial Arnol Date Initial Exam Date Initial Exam Provider Initial Ultrasound Date Last Menstrual Period Date Ultra Sound Weeks Gestation 0 Eighteen To Twenty Week Arnol Update Ultra Sound Date Fundal Height At Umbil Quickening Date Ultra Sound Latest Weeks Gestation Final Arnol Confirmed By Final Arnol Confirmed Date Final Arnol Date Ultra Sound Latest Days Gestation 0 0 Menstrual History Last Menstrual Date Menses Monthly On Bcp Conception Prior Menses Frequency Hcg Plus Date Menarche Onset Age Delivery Information Delivery Date Delivery Type Labor Anesthesia Weeks Gestation Incision Type Labor Labor Length Hrs Delivered By Post Complications Tubal Sterilization Discharge Date Comments 5 Discharge Information Feeding Method Contraceptive Method Maternal HG B and HCT Levels Ob Episode Information Episode Created Date Number of Fetuses Patient Bloodtype Patient rh Status Prepregnancy Weight lbs Domestic Partner Domestic Partner Phone Father Name Special Machine Stitcher Status 05/19/20 14 1 CLOSED Fetus Data First Name Last Name Admitted to NICU Weight (g) Sex Living Outcome Pediatric Complications Fetus ID Race Codes Race Delivery Type 3458.63 9 [id number] Vaginal Arnol Calculation Initial Arnol Date Initial Exam Date Initial Exam Provider Initial Ultrasound Date Last Menstrual Period Date Ultra Sound Weeks Gestation 0 Eighteen To Twenty Week Arnol Update Ultra Sound Date Fundal Height At Umbil Quickening Date Ultra Sound Latest Weeks Gestation Final Arnol Confirmed By Final Arnol Confirmed Date Final Arnol Date Ultra Sound Latest Days Gestation 0 0 Menstrual History Last Menstrual Date Menses Monthly On Bcp Conception Prior Menses Frequency Hcg Plus Date Menarche Onset Age Delivery Information Delivery Date Delivery Type Labor Anesthesia Weeks Gestation Incision Type Labor Labor Length Hrs Delivered By Post Complications Tubal Sterilization Discharge Date Comments 0 37 Discharge Information Feeding Method Contraceptive Method Maternal HG B and HCT Levels Ob Episode Information Episode Created Date Number of Fetuses Patient Bloodtype Patient rh Status Prepregnancy Weight lbs Domestic Partner Domestic Partner Phone Father Name Special Machine Stitcher Status 08/16/19 15 1 A Negative Greg Camp CLOSED Fetus Data First Name Last Name Admitted to NICU Weight (g) Sex Living Outcome Pediatric Complications Fetus ID Race Codes Race Delivery Type Rashad Weiner jose-S gladys a 3401.94 M Full Term None [id number] White Vaginal Problems Problem Notes Rh Negative-->Rhogam @ 28 we eks; Rubella Non-immune-->Vaccinate Problem Name Start Date End Date Resolution Snomed Code Not e Impaired glucose tolerance i n [id number] Intrauterine [id number] 0 Carpal tunnel syndrome [id number] Arnol Calculation Initial Arnol Date Initial Exam Date Initial Exam Provider Initial Ultrasound Date Last Menstrual Period Date Ultra Sound Weeks Gestation 03/03/2015 08/15/2014 07/25/2014 05/28/2014 8 Eighteen To Twenty Week Arnol Update Ultra Sound Date Fundal Height At Umbil Quickening Date Ultra Sound Latest Weeks Gestation Final Arnol Confirmed By Final Arnol Confirmed Date Final Arnol Date Ultra Sound Latest Days Gestation 0 03/03/20 15 0 Pre-natan Flowsheet Flowsheet Date 08/15/2014 Her Score Blood Edema Fundus Height Fundus Units Glucose Ketones Leukocytes Nitrite Labor Signs Protein Cervic Dilation Cervic Effacement Cervic Station none trace 0cm Type Weight in lbs Pre/Post Dialysis Refused 124.570235765715 BP Diastolic BP Location Tested BP Systolic BP Type 80 R arm 124 sitting Fetus Heart Rate Present A 160 Present Fetus Movement Comments PE, pap, GC/chlam cx done. P renatal labs reviewed. Flowsheet Date 09/13/2014 Her Score Blood Edema Fundus Height Fundus Units Glucose Ketones Leukocytes Nitrite Labor Signs Protein Cervic Dilation Cervic Effacement Cervic Station none neg Type Weight in lbs Pre/Post Dialysis Refused 126.93068810869 BP Diastolic BP Location Tested BP Systolic BP Type 60 L arm 110 sitting Fetus Heart Rate Present A 145 Present Fetus Movement A Yes Comments Quad screen discussed, order ed. RTO 3 weeks. Flowsheet Date 10/04/2014 Her Score Blood Edema Fundus Height Fundus Units Glucose Ketones Leukocytes Nitrite Labor Signs Protein Cervic Dilation Cervic Effacement Cervic Station none trace Type Weight in lbs Pre/Post Dialysis Refused 129.098451690005 BP Diastolic BP Location Tested BP Systolic BP Type 62 112 sitting Fetus Heart Rate Present A 145 Present Fetus Movement A Yes Comments Quad screen negative, dwp. A natomy US ordered. Pt. does not want to know gender. Treatment for varicose veins discussed. RTO 4 weeks. Flowsheet Date 11/01/2014 Her Score Blood Edema Fundus Height Fundus Units Glucose Ketones Leukocytes Nitrite Labor Signs Protein Cervic Dilation Cervic Effacement Cervic Station none trace Type Weight in lbs Pre/Post Dialysis Refused 131.89398121637 BP Diastolic BP Location Tested BP Systolic BP Type 60 106 sitting Fetus Heart Rate Present A 145 Present Fetus Movement A Yes Comments Doing well. Third trimester labs next visit (Rh-). Instructions discussed. RTO 4 weeks Flowsheet Date 11/29/2014 Her Score Blood Edema Fundus Height Fundus Units Glucose Ketones Leukocytes Nitrite Labor Signs Protein Cervic Dilation Cervic Effacement Cervic Station none neg Type Weight in lbs Pre/Post Dialysis Refused 136.377460097803 BP Diastolic BP Location Tested BP Systolic BP Type 64 114 sitting Fetus Heart Rate Present A 140 Present Fetus Movement A Yes Comments Hydration and nutrition disc ussed to combat dizziness. Third trimester labs done today. (RH negative) Rhogam and TdaP next visit. Handout from [facility] re TdaP in [place] given. RTO 2 weeks. Flowsheet Date 12/13/2014 Her Score Blood Edema Fundus Height Fundus Units Glucose Ketones Leukocytes Nitrite Labor Signs Protein Cervic Dilation Cervic Effacement Cervic Station none trace Type Weight in lbs Pre/Post Dialysis Refused 139.122897160291 BP Diastolic BP Location Tested BP Systolic BP Type 76 122 sitting Fetus Heart Rate Present A 145 Present Fetus Movement A Yes Comments TdaP and Rhogam discussed. B oth given. 3 hour GTT wnl, dwp. Pt. with varicose veins. Advised swimming pool. Rx Ob[place] hose given. PT labor prec/kick counts discussed. RTO 2 weeks. Flowsheet Date 12/27/2014 Her Score Blood Edema Fundus Height Fundus Units Glucose Ketones Leukocytes Nitrite Labor Signs Protein Cervic Dilation Cervic Effacement Cervic Station none neg Type Weight in lbs Pre/Post Dialysis Refused 144.986598500213 BP Diastolic BP Location Tested BP Systolic BP Type 78 132 sitting Fetus Heart Rate Present A 145 Present Fetus Movement A Yes Comments PT labor prec/kick counts di scussed. RTO 2 weeks. Flowsheet Date 01/10/2015 Her Score Blood Edema Fundus Height Fundus Units Glucose Ketones Leukocytes Nitrite Labor Signs Protein Cervic Dilation Cervic Effacement Cervic Station none trace Type Weight in lbs Pre/Post Dialysis Refused 146.922483018077 BP Diastolic BP Location Tested BP Systolic BP Type 68 122 sitting Fetus Heart Rate Present A 140 Present Fetus Movement A Yes Comments PT labor prec/kick counts di scussed. RTO 2 weeks Flowsheet Date 01/23/2015 Her Score Blood Edema Fundus Height Fundus Units Glucose Ketones Leukocytes Nitrite Labor Signs Protein Cervic Dilation Cervic Effacement Cervic Station Type Weight in lbs Pre/Post Dialysis Refused 146.887565439946 BP Diastolic BP Location Tested BP Systolic BP Type 62 R arm 112 sitting Fetus Heart Rate Present Fetus Movement Comments Flowsheet Date 01/24/2015 Her Score Blood Edema Fundus Height Fundus Units Glucose Ketones Leukocytes Nitrite Labor Signs Protein Cervic Dilation Cervic Effacement Cervic Station none trace Type Weight in lbs Pre/Post Dialysis Refused 149.839467216497 BP Diastolic BP Location Tested BP Systolic BP Type 68 114 sitting Fetus Heart Rate Present A 145 Present Fetus Movement A Yes Comments Pt. with c/o numb right arm in the AM and dropping things. Positive Phalen and Tinel's bilaterally. Rx Bilateral wrist splints given. Instructions discussed. PT labor prec/kick counts discussed. RTO 2 weeks. GBS next visit. Flowsheet Date 02/09/2015 Her Score Blood Edema Fundus Height Fundus Units Glucose Ketones Leukocytes Nitrite Labor Signs Protein Cervic Dilation Cervic Effacement Cervic Station none trace 1cm Type Weight in lbs Pre/Post Dialysis Refused 153.975725720808 BP Diastolic BP Location Tested BP Systolic BP Type 60 100 sitting Fetus Heart Rate Present A 140 Present Fetus Movement A Yes Comments GBS done today. Labor prec/k ick counts discussed. Wrists still very painful. Conservative measures discussed. Pt to wear splints during the day too. Flowsheet Date 02/16/2015 Her Score Blood Edema Fundus Height Fundus Units Glucose Ketones Leukocytes Nitrite Labor Signs Protein Cervic Dilation Cervic Effacement Cervic Station none neg 2cm 60% -2 Type Weight in lbs Pre/Post Dialysis Refused 153.441801996344 BP Diastolic BP Location Tested BP Systolic BP Type 74 116 sitting Fetus Heart Rate Present A 155 Present Fetus Movement A Yes Comments Pt.'s carpel tunnel keeps ge tting worse and worse. She is dropping things later in the day. Her cervix is favorable and she has had 3 previous vaginal deliveries. IOL after 39 weeks discussed. Pt. agreeable. Scheduled for 02/26/15 @ 0630. Labor prec/kick counts discussed. Flowsheet Date 03/07/2015 Her Score Blood Edema Fundus Height Fundus Units Glucose Ketones Leukocytes Nitrite Labor Signs Protein Cervic Dilation Cervic Effacement Cervic Station Type Weight in lbs Pre/Post Dialysis Refused 134.30472721112 BP Diastolic BP Location Tested BP Systolic BP Type 74 L arm 104 sitting Fetus Heart Rate Present Fetus Movement Comments Menstrual History Last Menstrual Date Menses Monthly On Bcp Conception Prior Menses Frequency Hcg Plus Date Menarche Onset Age 1205/28/2014 Genetic Screening And Infection History Question Response Note Patient's Age Will Be 35 Yea rs Or Older At Estimated Date of Delivery false Thalassemia (German, German, Mediterranean, Or Background): MCV < 80 false Neural Tube Defect (Meningom yelocele, Spina Bifida, Or Anencephaly) false Congenital Heart Defect false Down Syndrome false Liu-Sachs (eg, Shinto, Cajun, Vietnamese-Austrian) f alse Susan Disease false Sickle Cell Disease Or Trait () false Hemophilia Or Other Blood Disorders false Muscular Dystrophy false Cystic Fibrosis false Obie's Chorea false Mental Retardation/Autism false Other Inherited Genetic Or Chromosomal Disorder false Maternal Metabolic Disorder (eg, Type 1 Diabetes , PKU) false Patient Or Baby's Father Had A Child With Defects Not Listed Above false Recurrent Loss, Or A Stillbirth false Medications (including Suppl ements, Vitamins, Herbs, OTC Drugs), Illicit/Recreational Drugs, Alcohol true PNV Any Other Genetic History false Live With Someone With TB Or Exposed To TB false Patient Or Partner Has History Of Genital Herpes false Rash Or Viral Illness Since Last Menstrual Perio d false History Of STD, Gonorrhea, Chlamydia, HPV, Syphi lis true Chlamydia 2015 Other Infection History false Delivery Information Delivery Date Delivery Type Labor Anesthesia Weeks Gestation Incision Type Labor Labor Length Hrs Delivered By Post Complications Tubal Sterilization Discharge Date Comments 5 [facility] idural [address] Pavon None false Discharge Information Feeding Method Contraceptive Method Maternal HG B and HCT Levels Breast Ob Episode Information Episode Created Date Number of Fetuses Patient Bloodtype Patient rh Status Prepregnancy Weight lbs Domestic Partner Domestic Partner Phone Father Name Special Machine Stitcher Status 03/07/20 15 1 DELETED Arnol Calculation Initial Arnol Date Initial Exam Date Initial Exam Provider Initial Ultrasound Date Last Menstrual Period Date Ultra Sound Weeks Gestation 0 Eighteen To Twenty Week Arnol Update Ultra Sound Date Fundal Height At Umbil Quickening Date Ultra Sound Latest Weeks Gestation Final Arnol Confirmed By Final Arnol Confirmed Date Final Arnol Date Ultra Sound Latest Days Gestation 0 0 Menstrual History Last Menstrual Date Menses Monthly On Bcp Conception Prior Menses Frequency Hcg Plus Date Menarche Onset Age Delivery Information Delivery Date Delivery Type Labor Anesthesia Weeks Gestation Incision Type Labor Labor Length Hrs Delivered By Post Complications Tubal Sterilization Discharge Date Comments 09/20/201 5 Discharge Information Feeding Method Contraceptive Method Maternal HG B and HCT Levels Ob Episode Information Episode Created Date Number of Fetuses Patient Bloodtype Patient rh Status Prepregnancy Weight lbs Domestic Partner Domestic Partner Phone Father Name Special Machine Stitcher Status 11/19/19 17 1 CLOSED Fetus Data First Name Last Name Admitted to NICU Weight (g) Sex Living Outcome Pediatric Complications Fetus ID Race Codes Race Delivery Type F Full Term [id number] Vaginal Arnol Calculation Initial Arnol Date Initial Exam Date Initial Exam Provider Initial Ultrasound Date Last Menstrual Period Date Ultra Sound Weeks Gestation 0 Eighteen To Twenty Week Arnol Update Ultra Sound Date Fundal Height At Umbil Quickening Date Ultra Sound Latest Weeks Gestation Final Arnol Confirmed By Final Arnol Confirmed Date Final Arnol Date Ultra Sound Latest Days Gestation 0 0 Menstrual History Last Menstrual Date Menses Monthly On Bcp Conception Prior Menses Frequency Hcg Plus Date Menarche Onset Age Delivery Information Delivery Date Delivery Type Labor Anesthesia Weeks Gestation Incision Type Labor Labor Length Hrs Delivered By Post Complications Tubal Sterilization Discharge Date Comments 5 Discharge Information Feeding Method Contraceptive Method Maternal HG B and HCT Levels Ob Episode Information Episode Created Date Number of Fetuses Patient Bloodtype Patient rh Status Prepregnancy Weight lbs Domestic Partner Domestic Partner Phone Father Name Special Machine Stitcher Status 11/19/19 17 1 CLOSED Fetus Data First Name Last Name Admitted to NICU Weight (g) Sex Living Outcome Pediatric Complications Fetus ID Race Codes Race Delivery Type F Full Term [id number] Vaginal Arnol Calculation Initial Arnol Date Initial Exam Date Initial Exam Provider Initial Ultrasound Date Last Menstrual Period Date Ultra Sound Weeks Gestation 0 Eighteen To Twenty Week Arnol Update Ultra Sound Date Fundal Height At Umbil Quickening Date Ultra Sound Latest Weeks Gestation Final Arnol Confirmed By Final Arnol Confirmed Date Final Arnol Date Ultra Sound Latest Days Gestation 0 0 Menstrual History Last Menstrual Date Menses Monthly On Bcp Conception Prior Menses Frequency Hcg Plus Date Menarche Onset Age Delivery Information Delivery Date Delivery Type Labor Anesthesia Weeks Gestation Incision Type Labor Labor Length Hrs Delivered By Post Complications Tubal Sterilization Discharge Date Comments 7 Discharge Information Feeding Method Contraceptive Method Maternal HG B and HCT Levels
--- OUTSIDE RECORDS SUMMARY | 2024-07-06 18:31 | XMS_ITS | Patient Health Summary ---
Author Organization [facility] Address [address] [place] [address] Care Team Providers Care Roping Tender Name Role Phone Alfonzo, Thomas Hernándezmis FUEL ATTENDANT-DIESEL ELECTRICIAN Primary Care Pro vider Note from [facility],non-owned Affiliates and Associated Physician Practices is amultiple site organization consisting of ambulatory clinics and hospital sitesin [place], [place], [place] and [place]. This disclosure is being madepursuant to the Care Everywhere program and may not contain all information available regarding this patient. Last updated 18.[facility] Allergies No known active allergies Medications * Be aware that medications may not be up to date on this document. Alwaysverify current medications with the patient. * mupirocin (BACTROBAN) 2 % ointment(Started 03/16/2019) Apply to affected area 3 times daily Right toe along nail Reasons: Wound Infection * Levothyroxine Sodium (LEVOTHROID PO) * linaCLOtide (Linzess) 290 MCG capsule(Started 11/23/2023) Take 1 (one) capsule by mouth once daily * ibuprofen (Motrin) 800 MG tablet * Linzess 145 MCG capsule Take 1 (one) capsule by mouth once daily * norgestim-eth estrad triphasic LO 0.18/0.215/0.25 MG-25 MCG tablet(Started 12/09/2023) Take 1 (one) tablet by mouth once daily 2 refills by 12/08/2024 Active Problems No known active problems Social [...] Mass Index 29.39 12/09/2023 10:17 AM CDT Procedures * INFLUENZA A+B - POINT OF CARE (AMB)(Performed 06/26/2016) Performed for Influenza Results * (ABNORMAL) INFLUENZA A+B - POINT OF CARE (AMB) (06/26/2016) Influenza A Antigen Rapid Negative Negative Influenza B Antigen Rapid Positive(A) Negative Influenza Internal Control yes NEGATIVE - POSITIVE Influenza Lot Number [id number] Influenza Expiration Date 218 Other NASOPHARYNGEAL SWAB / Unknown 06/26/2016 [facility] - POINT OF CARE ORDERABLES Care Teams Roping Tender Relationship Specialty Start Date End Date Thomas Mejía APRN-CNP [address] [place] [id number] PCP - General Nurse Practitioner 12/09/23
[2024-07-06 18:32] VITALS: BP 102/59; PULSE 64; RESP 16; TEMP 36.7; O2SAT 98
--- OUTSIDE RECORDS SUMMARY | 2024-07-06 18:32 | XMS_ITS | Continuity of Care Document ---
Author Organization [facility] Address [address] [place] [address] Phone Care Team Providers Care Classroom Technology Coach Name Role Phone Unavailable Unavailable Unavailable Allergies, Adverse Reactions, Alerts Substance Reaction Status Criticality No Known allergies Medications Medication Instructions Dosage Effective Dates (start - stop) Status Comments Colace 100 mg Cap take 1 capsule (100MG) by oral route every day at bedtime as needed 100 MG - No Longer Active Procedures Procedure Date COLLECTION OF VENOUS BLOOD BY VENIPUNCTU SUJEY OFFICE/OUTPATIENT VISIT, [facility] Advance Directives Directive Yes / No Effective Date File Name No Information Encounters Encounter Description Practice Location Reason(s) For Visit Diagnoses Date Provider Providers Copied on Encounter [facility] [address], [place], [place], [id number] , [place] tel: [phone] [facility] No Information 0 No Information OFFICE/OUTPAT IENT VISIT, [email or web address], [address], [place], [place], [id number] , tel: [phone] [facility] constipation (chief complaint) Constipation , unspecified 0 No Information Family History Family Member Type Diagnosis Age At Onset No Information Payers Payer name Insurance type Covered libertarian ID Authoriza tion(s) No Information Social History [...]
--- NOTE | 2024-07-06 20:13 | ED_ITS ---
HPI - URI/Sore Throat General Chief Complaint: Upper Respiratory Infection Stated Complaint: Fever/Runny Nose Time Seen by Provider: 07/06/24 20:00 Source: patient, RN notes reviewed and old records reviewed Mode of arrival: ambulatory Limitations: no limitations History of Present Illness HPI Narrative: 39 year old female who presents to [facility] care accompanied by spouse with complaints of cough, fever, , runny nose, headache and body aches which started yesterday. Patient reports that she has been taking Theraflu and also Ibuprofen for her symptoms. Patient denies any nausea or vomiting or diarrhea. MD elicited complaint: fever, cough, rhinorrhea, nasal congestion and other (headache and body aches) Onset (ago): day(s) (day 2 of symptoms) Pain scale (0-10): 6 Able to tolerate fluids by mouth: Yes Treatments prior to arrival: ibuprofen and other (Theraflu) Related Data Home Medications ?Medication ?Instructions ?Recorded ?Confirmed ?Last Taken ?Type levothyroxine 50 mcg tablet 50 mcg PO DAILY 01/15/22 07/06/24 Unknown History linaclotide 145 mcg capsule 145 mcg PO DAILY 01/15/22 01/19/24 Unknown History (Linzess) levothyroxine 75 mcg tablet mcg 07/06/24 Unknown History Allergies Allergy/AdvReac Type Severity Reaction Status Date / Time No Known Allergies Allergy Verified 07/06/24 19:05 Review of Systems Review of Systems: CONSTITUTIONAL: reports malaise, chills, sweats, or fever. EYES: Denies visual changes, redness, or discharge. ENT: Reports rhinorrhea, congestion, sinus pain,no otalgia and no sore throat. CARDIOVASCULAR: Denies chest pain, palpitations, or edema. RESPIRATORY: Reports cough.? Denies dyspnea. GASTROINTESTINAL: Denies abdominal pain, nausea, vomiting, diarrhea SKIN: Denies rash or itching. MUSCULOSKELETAL: reports myalgia. NEUROLOGIC:Reports headache. All systems reviewed & are unremarkable except as noted in HPI and below PMFSH Past Medical History Medical History (Updated 07/10/24 @ 12:26 by Karla Eid NP) Constipation History of hypothyroidism Surgical History Surgical History (Updated 07/10/24 @ 12:25 by Karla Eid NP) Hx of cholecystectomy Social History Social History (Updated 02/09/25 @ 12:25 by Karla Eid NP) Smoking status: Never smoker Alcohol intake: current Alcohol use details: rare social Substance use: never Living arrangements: with family Gender identity (if verbalized by the patient): Female Comments At time of signature, agree with nursing past medical, surgical, social and family history. There is no relevant family history pertinent to the presenting complaint Exam Narrative: GENERAL: Well-appearing, well-nourished, and in no acute distress. HEAD: Normocephalic EYES: PERRLA, conjunctivae clear ENT: Nares clear, turbinates edematous and erythematous, clear discharge. Mucous membranes moist. TM pearly torres with dull light reflex bilaterally; no tragal tenderness. Oropharynx erythematous without lesions. Tonsils not enlarged and without exudate, no drooling, no hoarseness, no trismus, uvula midline.post nasal drainage NECK: Supple. No lymphadenopathy CHEST: Clear to auscultation, breath sounds equal. No wheezing, rhonchi, rales, or stridor. No respiratory distress, speaks in full sentences.cough notedSAO2 98% on room air HEART: Regular rate and rhythm. No murmur heard. SKIN: Warm, dry, no rash. NEURO: Alert and oriented x3. PSYCH: Normal mood and affect Course Course Emergency Course: Patient is aware of diagnosis, understands and agrees to treatment plan.? Anticipatory guidance given.? Patient agrees to follow-up as directed and is aware of reasons to seek care at the emergency department. Portions of this record may have been created with voice recognition software Level of Care: Express Care Visit Vital Signs Vital signs: Vital Signs Temperature 36.7 C 07/06/24 18:32 Pulse Rate 64 07/06/24 18:32 Respiratory Rate 16 07/06/24 18:32 Blood Pressure 102/59 L 07/06/24 18:32 Pulse Oximetry 98 07/06/24 18:32 Oxygen Delivery Room Air 07/06/24 18:32 Temperature 36.7 C 07/06/24 18:32 Pulse Rate 64 07/06/24 18:32 Respiratory Rate 16 07/06/24 18:32 Blood Pressure 102/59 L 07/06/24 18:32 Pulse Oximetry 98 07/06/24 18:32 Oxygen Delivery Room Air 07/06/24 18:32 Reviewed MDM - URI/Sore Throat MDM Narrative Medical decision making narrative: Differential diagnosis considered: Rojas virus, strep pharyngitis, allergic rhinitis, upper respiratory tract infection, sinusitis, rhinosinusitis, nasopharyngitis. viral pharyngitis, otitis media, otitis externa, pneumonia, bronchitis, viral cough syndrome, viral syndrome, and influenza.? Exam findings show no acute concerns or changes; patient is non-toxic appearing and is in no distress.? Patient is appropriate for outpatient treatment and follow-up. Differential Diagnosis Differential diagnosis: Likely upper respiratory infection, sinusitis, viral infection, influenza and other (COVID) Medical Records Attestation: I reviewed the patient's medical records. Lab Data Attestation: I reviewed the patient's lab results. Lab results narrative: Influenza A positive, Influenza B negative, COVID antigen negative Labs: Lab Results 07/06/24 Range/Units 20:23 POC Influenza A Ag Positive (Negative) POC Influenza B Ag Negative (Negative) POC SARS CoV-2 Ag Negative (Negative) reviewed Critical Care Time Critical Care Time Critical Care Time: No Discharge Plan Discharge Clinical Impression: Influenza A Patient Disposition: Home, Self-Care Condition: Stable Instructions: Antibiotic Form, Influenza (ED) Additional Instructions: Increase fluids especially juices and water [id number] cough and cold medicine of your choice for your symptoms Tylenol or ibuprofen for any fever pain Zyrtec Claritin or Chantell Robitussin or Delsym cough syrup heat to the face 20-30 minutes 4-6 times a day for pain Salt water gargles, throat lozenges or throat sprays as desired Patient has to be fever free for 24 hours without use of Tylenol or ibuprofen before the she can return to be around others Patient Language: Swedish Prescriptions: No Action levothyroxine 75 mcg tablet levothyroxine 50 mcg tablet 50 mcg PO DAILY Linzess 145 mcg capsule 145 mcg PO DAILY Follow-up/Referrals: UNKNOWN,DOCTOR [Primary Care Provider] - Time of Disposition: 20:25 Quality [place] Coma Scale Eyes: Open Verbal: Oriented and Alert Motor: Follows Commands [place] Coma Total Score: 15
[2024-07-06 20:27] LABS: EDCOVIDSCREEN Negative (Negative); EDINFLUASCREEN Positive (Negative); EDINFLUBSCREEN Negative (Negative)
== END 2024-07-06 20:28 | disposition home or self-care (01) ==
PROVIDERS: Emergency Provider Registered Nurse
DX: J10.1 Influenza due to other identified influenza virus with other respiratory manifestations (principal); E03.9 Hypothyroidism, unspecified; Z79.899 Other long term (current) drug therapy; Z20.822 Contact with and (suspected) exposure to COVID-19
CPT/HCPCS: 87426; 87804; 99212; G0463

== ENCOUNTER 2024-08-19 12:28 | Emergency (ER) | payer SELFPAY ==
[2024-08-19 12:50] VITALS: BP 120/80; PULSE 72; RESP 18; TEMP 36.5; O2SAT 96
[2024-08-19 13:06] LABS: EDCOVIDSCREEN Negative (Negative); EDINFLUASCREEN Negative (Negative); EDINFLUBSCREEN Negative (Negative); EDSTREPNEGPOS1 Negative (Negative)
--- NOTE | 2024-08-19 13:32 | ED_ITS ---
HPI - URI/Sore Throat General Chief Complaint: Upper Respiratory Infection Stated Complaint: Fever/Sore Throat Time Seen by Provider: 08/19/24 13:27 Source: patient and RN notes reviewed Mode of arrival: ambulatory Limitations: no limitations History of Present Illness HPI Narrative: Patient presents today with a 2 day history of fever up to 102, headache, sore throat, body aches, cough and congestion. Denies any known sick contacts. She has been taking ibuprofen without much relief. Related Data Home Medications ?Medication ?Instructions ?Recorded ?Confirmed ?Last Taken ?Type levothyroxine 50 mcg tablet 50 mcg PO DAILY 01/15/22 07/06/24 Unknown History linaclotide 145 mcg capsule 145 mcg PO DAILY 01/15/22 01/19/24 Unknown History (Linzess) levothyroxine 75 mcg tablet mcg 07/06/24 Unknown History Allergies Allergy/AdvReac Type Severity Reaction Status Date / Time No Known Allergies Allergy Verified 08/19/24 12:43 Review of Systems Review of Systems: CONSTITUTIONAL: Denies chills, or sweats.+ body aches, fever EYES: Denies visual changes, redness, or discharge. ENT: Denies rhinorrhea, sore throat, or otalgia.+ congestion CARDIOVASCULAR: Denies chest pain, palpitations, or edema. RESPIRATORY: Denies dyspnea.+ cough GASTROINTESTINAL: Denies abdominal pain, nausea, vomiting, or diarrhea. GENITOURINARY: Denies dysuria or hematuria. SKIN: Denies rash, itching, or wounds. MUSCULOSKELETAL: Denies back pain, joint pain, or myalgia. NEUROLOGIC: Denies numbness, tingling, or weakness.+ headache PSYCH: Denies depression or anxiety. [facility] Past Medical History Medical History Constipation History of hypothyroidism Surgical History Surgical History Hx of cholecystectomy Social History Social History Smoking status: Never smoker Alcohol intake: current Alcohol use details: rare social Substance use: never Living arrangements: with family Gender identity (if verbalized by the patient): Female Comments At time of signature, I have reviewed and agree with nursing past medical, surgical, social and family history unless otherwise noted. Please see nursing chart for further information. There is no relevant family history pertinent to the presenting complaint Exam Narrative: GENERAL: Mildly ill-appearing, well-nourished, and in no acute distress. HEAD: Normocephalic, atraumatic. EYES: EOMI. No redness or drainage. Conjunctivae normal. ENT: Mucous membranes pink and moist. Nares congested with rhinorrhea. TMs normal bilaterally. Throat mildly erythematous without edema or exudate. Uvula midline. NECK: Normal AROM. Supple. No lymphadenopathy. CHEST: No respiratory distress. Clear to auscultation. HEART: Regular rate and rhythm. No murmur appreciated. EXTREMITIES: Normal range of motion. No edema. SKIN: Warm, dry, no rash. Capillary refill normal. Normal skin turgor. NEURO: No focal deficits. Alert and oriented x3. Gait steady. PSYCH: Normal affect. No signs of depression or anxiety. Course Course Level of Care: Express Care Visit Vital Signs Vital signs: Vital Signs Temperature 97.7 F 08/19/24 12:50 Pulse Rate 72 08/19/24 12:50 Respiratory Rate 18 08/19/24 12:50 Blood Pressure 120/80 08/19/24 12:50 Pulse Oximetry 96 08/19/24 12:50 Temperature 97.7 F 08/19/24 12:50 Pulse Rate 72 08/19/24 12:50 Respiratory Rate 18 08/19/24 12:50 Blood Pressure 120/80 08/19/24 12:50 Pulse Oximetry 96 08/19/24 12:50 Reviewed MDM - URI/Sore Throat MDM Narrative Medical decision making narrative: Testing negative. Strep culture pending. Symptoms likely viral in etiology. Discussed [id number] medication use and duration of illness. No prescription medications indicated at this time. Anticipatory guidance given. Differential Diagnosis Differential diagnosis: Likely upper respiratory infection, viral infection, influenza, pharyngitis and other (Strep throat, COVID) Lab Data Attestation: I reviewed the patient's lab results. Labs: Lab Results 08/19/24 Range/Units 13:04 POC Influenza A Ag Negative (Negative) POC Influenza B Ag Negative (Negative) POC SARS CoV-2 Ag Negative (Negative) POC Grp A Strep Screen Negative (Negative) Critical Care Time Critical Care Time Critical Care Time: No Discharge Plan Discharge Clinical Impression: Upper respiratory infection Qualifiers: URI type: unspecified URI Qualified Code(s): J06.9 - Acute upper respiratory infection, unspecified Patient Disposition: Home, Self-Care Condition: Stable Instructions: Upper Respiratory Infection (DC) Additional Instructions: Your COVID-19, influenza, and rapid strep swab was negative today at [facility]. You will be notified in a few days if the culture comes back positive for strep, and appropriate antibiotics will be called in for you at that time. Your symptoms are likely due to a viral illness, which is not treated with antibiotics. Viral symptoms can be present for up to 7-10 days. Take Tylenol or ibuprofen/aleve for fever or pain. Rest and stay hydrated. Follow up with your PCP in 7 days if symptoms are not improving. Go to the ER immediately if you have any difficulty breathing or swallowing. Patient Language: Slovenian Prescriptions: No Action levothyroxine 75 mcg tablet levothyroxine 50 mcg tablet 50 mcg PO DAILY Linzess 145 mcg capsule 145 mcg PO DAILY Follow-up/Referrals: PHYSICIAN,LITHOGRAPHED PLATE INSPECTOR [Primary Care Provider] - Time of Disposition: 13:34
== END 2024-08-19 13:46 | disposition home or self-care (01) ==
PROVIDERS: Emergency Provider Nurse Practitioner
DX: J06.9 Acute upper respiratory infection, unspecified (principal); Z20.822 Contact with and (suspected) exposure to COVID-19; E03.9 Hypothyroidism, unspecified
CPT/HCPCS: 87081; 87426; 87804; 87880; 99213; G0463